=== PATIENT | male | born 1935 | race Caucasian/White ===

== ENCOUNTER 2018-02-18 07:49 | Observation (INO) ==
--- NOTE | 2018-02-18 08:10 | ED ---
HPI General Chief Complaint: Chest Pain Stated Complaint: Chest Pain/[facility] Sent Time Seen by Provider: 02/18/18 07:52 Source: patient Mode of arrival: EMS Limitations: no limitations History of Present Illness HPI narrative: 82-year-old male presents by ambulance from the [place] [facility] for chest pain. He was sent here for further evaluation. He was given no medications they are in route. He states he takes aspirin daily and he believes he took it this morning. He was given no nitroglycerin. He states he has been having pressure for about a week. He does not recall his prior cardiac workup and does not believe he has a electrical line splicer that he sees. He denies other associated symptoms. Quality is pressure. Severity is 6 out of 10. He denies modifying factors. 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 Medical History Medical History Diabetes mellitus (Acute) Brain mass (Acute) CKD (chronic kidney disease) (Acute) Coronary atherosclerosis (Acute) Dementia (Acute) GERD (gastroesophageal reflux disease) (Acute) HTN (hypertension) (Acute) Incontinence (Acute) Legally blind (Acute) Mixed hyperlipidemia (Acute) Spinal stenosis (Acute) Surgical History Surgical History History of back surgery (Acute) History of hernia repair (Acute) 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 HEAD: Atraumatic. Normocephalic. EYES: Pupils equal and round. No scleral icterus. No injection or drainage. ENT: No nasal bleeding or discharge. Mucous membranes pink and moist. NECK: Trachea midline. No JVD. CARDIOVASCULAR: Regular rate and rhythm. RESPIRATORY: No accessory muscle use. Clear to auscultation. Breath sounds equal bilaterally. GASTROINTESTINAL: Abdomen soft, non-tender, nondistended. MUSCULOSKELETAL: No obvious deformities. No clubbing. No cyanosis. NEUROLOGICAL: Awake and alert. Motor grossly within normal limits. Normal speech. PSYCHIATRIC: Appropriate mood and affect; insight and judgment normal. Course Reevaluation(s) Reevaluation #1: arrived at bedside and states that he had a full aspirin this morning. Patient is currently pain-free after 1 nitroglycerin. states that he is following up next Saturday with a neurologist after a brain mass was found in his frontal lobe that they think is related to his dementia symptoms. She states he does not have a electrical line splicer and has not had a workup for at least 6-8 years. She was updated about troponin and agrees to admission. Patient agrees as well Consultations Consultation #1: dr west agrees to admit and to hold on imaging for now given symptoms Initial Documented Vital Signs Pulse Rate 64 02/18/18 07:56 Respiratory Rate 16 02/18/18 07:56 Blood Pressure 150/77 H 02/18/18 07:56 Pulse Oximetry 96 02/18/18 07:56 Last Documented Vital Signs Temperature 98.5 F 02/18/18 08:02 Pulse Rate 69 02/18/18 08:22 Respiratory Rate 16 02/18/18 08:22 Blood Pressure 113/68 02/18/18 08:22 Pulse Oximetry 95 02/18/18 08:22 Medical Decision Making [facility] Narrative Medical decision making narrative: Will check blood work, chest x-ray, EKG and dose with nitroglycerin and reevaluate. Medical Screen Exam Complete: Yes Emergency Medical Condition: Yes Differential Diagnosis Differential Diagnosis: Cardiac, musculoskeletal, gastritis Lab Data Result diagrams: 02/18/18 08:02 02/18/18 08:02 Lab Results 02/18/18 02/18/18 02/18/18 Range/Units 08:02 08:02 08:02 WBC 7.0 (4.0-11.0) th/mm3 RBC 4.19 L (4.50-5.90) mil/mm3 Hgb 12.3 L (13.0-17.0) gm/dL Hct 35.5 L (39.0-51.0) % MCV 84.8 (80.0-100.0) fL MCH 29.4 (27.0-34.0) pg MCHC 34.7 (32.0-36.0) % RDW 14.4 (11.6-17.2) % Plt Count 138 L (150-450) th/mm3 MPV 9.8 (7.0-11.0) fL Prelim Diff (Auto) Slide review pending Neut % (Auto) 63.0 (16.0-70.0) % Lymph % (Auto) 23.6 (9.0-44.0) % [place] % (Auto) 8.5 H (0.0-8.0) % Eos % (Auto) 4.0 (0.0-4.0) % Baso % (Auto) 0.9 (0.0-2.0) % Neut # (Auto) 4.4 (1.8-7.7) th/mm3 Lymph # (Auto) 1.6 (1.0-4.8) th/mm3 [place] # (Auto) 0.6 (0.0-0.9) th/mm3 Eos # (Auto) 0.3 (0.0-0.4) th/mm3 Baso # (Auto) 0.1 (0.0-0.2) th/mm3 WBC Differential . Diff Scan Auto diff confirmed Differential Comment . Platelet Estimate Low L (Normal) Platelet Morphology Enlarged H (Normal) Ovalocytes 1+ H (None) PT 9.9 (9.8-11.6) sec INR 1.0 Ratio APTT 21.2 L (23.4-31.7) sec Sodium 137 (136-145) meq/L Potassium 4.4 (3.5-5.1) meq/L Chloride 101 (98-107) meq/L Carbon Dioxide 26.7 (21.0-32.0) meq/L Anion Gap 9 (5-15) meq/L BUN 23 H (7-18) mg/dL Creatinine 1.37 H (0.60-1.30) mg/dL Estimated GFR 50 L (>89) mL/min Random Glucose 262 H (74-106) mg/dL Calcium 9.1 (8.5-10.1) mg/dL Magnesium 1.7 (1.5-2.5) mg/dL Total Bilirubin 0.4 (0.2-1.0) mg/dL AST 18 (15-37) U/L ALT 21 (12-78) U/L Alkaline Phosphatase 57 (45-117) U/L Total Creatine Kinase 52 (39-308) U/L Troponin I 0.10 H (0.02-0.05) ng/mL Total Protein 6.7 (6.4-8.2) g/dL Albumin 3.4 (3.4-5.0) g/dL Imaging Data Radiologist's impression: Chest X-Ray 02/18/18 07:58 CONCLUSION: No acute cardiopulmonary findings. Discharge Plan Discharge Disposition Patient Disposition: 30 Still Patient Discharge Details Diagnosis: Chest pain Physicians Team ED Provider: Danielle Raymond Primary Care Provider: [facility] /Orders / Referrals /Forms Prescriptions: No Action aspirin 325 mg Tablet 325 mg PO DAILY RF: 0 Discharge Instructions Patient Printed Instructions: Chest Pain (ED) Status ED Status: Admitted Observation Patient
--- NOTE | 2018-02-18 08:18 | XR ---
EXAM DATE: 02/18/2018 8:13 AM EST AGE/SEX: 82 years / Male INDICATIONS: Chest pain. CLINICAL DATA: This is the patient's initial encounter. Patient reports that signs and symptoms have been present for 1 week and indicates a pain score of 5/10. MEDICAL/SURGICAL HISTORY: None. None. COMPARISON: No prior exams available for comparison. FINDINGS: A single AP view of the chest demonstrates the lungs to be symmetrically aerated without evidence of mass, infiltrate or effusion. The cardiomediastinal contours are unremarkable. Osseous structures a re intact. CONCLUSION: No acute cardiopulmonary findings. Electronically signed by: Calvin Szymanski MD 02/18/2018 8:17 AM EST
[2018-02-18 08:26] LABS: Baso # (Auto) 0.1 th/mm3 (0.0-0.2); Baso % (Auto) 0.9 % (0.0-2.0); Eos # (Auto) 0.3 th/mm3 (0.0-0.4); Hematocrit 35.5 % (39.0-51.0); Hemoglobin 12.3 gm/dL (13.0-17.0); Lymph # (Auto) 1.6 th/mm3 (1.0-4.8); Lymph % (Auto) 23.6 % (9.0-44.0); Mean Corpuscular HGB Conc 34.7 % (32.0-36.0); Mean Corpuscular Hemoglobin 29.4 pg (27.0-34.0); Mean Corpuscular Volume 84.8 fL (80.0-100.0); Mean Platelet Volume 9.8 fL (7.0-11.0); Mono # (Auto) 0.6 th/mm3 (0.0-0.9); Mono % (Auto) 8.5 % (0.0-8.0); Neut # (Auto) 4.4 th/mm3 (1.8-7.7); Platelet Count 138 th/mm3 (150-450); Red Blood Count 4.19 mil/mm3 (4.50-5.90); Red Cell Distribution Width 14.4 % (11.6-17.2)
[2018-02-18 08:39] LABS: Activated Partial Thrombo Time 21.2 sec (23.4-31.7); Prothrombin Time 9.9 sec (9.8-11.6)
[2018-02-18 08:41] LABS: Albumin 3.4 g/dL (3.4-5.0); Anion Gap 9 meq/L (5-15); Aspartate Aminotransferase 18 U/L (15-37); Blood Urea Nitrogen 23 mg/dL (7-18); Calcium 9.1 mg/dL (8.5-10.1); Carbon Dioxide 26.7 meq/L (21.0-32.0); Chloride 101 meq/L (98-107); Glomerular Filtration Rate 50 mL/min (>89); Glucose,Random 262 mg/dL (74-106); Magnesium 1.7 mg/dL (1.5-2.5); Potassium 4.4 meq/L (3.5-5.1); Sodium 137 meq/L (136-145)
[2018-02-18 08:42] LABS: Alanine Aminotransferase 21 U/L (12-78)
[2018-02-18 08:46] LABS: Alkaline Phosphatase 57 U/L (45-117); Total Protein 6.7 g/dL (6.4-8.2)
[2018-02-18 08:51] LABS: Creatine Kinase 52 U/L (39-308)
[2018-02-18 09:06] LABS: Ovalocytes 1+
[2018-02-18] MEDS ORDERED: Iohexol 350 MG/ML 100 ML Vial (for Cath Lab) IVCONTRAST ONE (09:25)
[2018-02-18] MEDS ORDERED: Sod Chloride 0.9% Inj 1,000 ML IV.CONT SCH (09:30)
[2018-02-18] MEDS: Heparin - SQ 10,000 UNITS/ML Vial SQ SCH ×2 (10:15→20:47)
--- NOTE | 2018-02-18 12:58 | MB ---
cc: Naresh Leonard MD DATE: 02/18/2018 REASON FOR CONSULTATION: Chest pain. HISTORY OF PRESENT ILLNESS: The patient is an 82-year-old white male with a history of dementia, diabetes, hypertension, brain mass, who was brought to the hospital due to complaints of chest pain. The patient states for the past 2 weeks, he has had daily episodes of left parasternal chest discomfort described as a "ache" without associated shortness of breath, nausea or diaphoresis. In the last 2-3 weeks, he has also noted increasing dyspnea on exertion, barely able to walk 50 yards without considerable shortness of breath. He denies paroxysmal nocturnal dyspnea, pedal edema, lightheadedness, syncope, near syncope, palpitations. His last episode of chest discomfort was this morning. Some of the episodes have lasted up to 2 hours. PAST MEDICAL HISTORY: 1. Diabetes. 2. Hypertension. 3. Hyperlipidemia. 4. Gastroesophageal reflux disease. 5. Dementia. 6. Brain mass, unclear type, currently being seen at the [facility] for further evaluation and treatment. PAST SURGICAL HISTORY: 1. Hernia repair. 2. Back surgery. 3. 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 CARDIAC MEDICATIONS AT HOME: 1. Amlodipine 2.5 mg daily. 2. Aspirin 325 mg daily. 3. Furosemide 20 mg daily. 4. Lisinopril 40 mg daily. 5. Niacin 500 mg daily. 6. Potassium chloride 10 mEq daily. 7. Crestor 40 mg daily. 8. For his diabetes, he takes Glipizide 20 mg b.i.d. Metformin 500 mg b.i.d. ALLERGIES: OXYCODONE. FAMILY HISTORY: Noncontributory. SOCIAL HISTORY: The patient quit smoking in the . He denies alcohol abuse. REVIEW OF SYSTEMS: As in the history of present illness, otherwise negative or noncontributory. He also denies headache, unilateral weakness or numbness, abdominal pain, melena, dyspepsia, bright red blood per rectum, cough, fevers. PHYSICAL EXAMINATION: VITAL SIGNS: His blood pressure 148/69 with a pulse of 57, respirations 16. GENERAL: He is a well-developed, well-nourished white male, in no acute distress. HEENT: Jugular venous pressure is normal. Carotid pulses are 2+ bilaterally and without bruits. CHEST: Reveals clear lungs kirby. CARDIAC: He has a regular rhythm and rate without S3, S4, or murmur. ABDOMEN: He has a soft, nontender abdomen. Bowel sounds are present. There is no definite hepatosplenomegaly. EXTREMITIES: Reveals no clubbing, cyanosis or edema. Peripheral pulses are normal throughout. LABORATORY DATA: EKG shows sinus rhythm with occasional premature atrial complex, nonspecific intraventricular conduction delay, nonspecific ST and T-wave abnormalities. Chest x-ray shows no acute disease. LABORATORY DATA: Includes WBC 7.0, hemoglobin 12.3, platelets 138, potassium 4.4, BUN 23, creatinine 1.37, troponin 0.10, CK 52. IMPRESSION: Symptoms most suggestive of unstable angina in this 82-year-old white male with a history of diabetes, hypertension, hyperlipidemia, dementia, brain mass. Indeed, his symptoms over the past 2 weeks are most consistent with exertional angina in an unstable pattern. In addition, he has had worsening dyspnea over the last 2-3 weeks. There is no definite evidence of congestive heart failure. The patient does have a number of risk factors for coronary disease including diabetes, hypertension, hyperlipidemia. Ideally, the patient needs heart catheterization. However, the nature of his brain mass, whether it is malignant or benign, whether it needs surgical intervention or not, is not clear at this time. RECOMMENDATIONS: 1. Await his 2-D echo. 2. Continue daily aspirin. Overall, recommend medical therapy until further information can be obtained regarding his brain mass. Will increase his amlodipine dosing, add an oral nitrate and low dose carvedilol. MD ZAKIYA Marquez/clarita/catrachita , 12:20 PM , 12:31 PM SHRUTI
--- NOTE | 2018-02-18 14:52 | P.HPIM ---
History of Present Illness [facility]: [facility] Physician: [facility] Chief Complaint: Chest pain. History of Present Illness: 82-year-old male with a medical history significant for dementia, hypertension, diabetes, chronic kidney disease sent by the OR after his convinced him to seek medical care. The patient has dementia therefore the history was obtained from his at bedside. She reports the patient has been having intermittent chest pain over the past 10 days. Pain is described as pressure with associated diaphoresis and shortness of breath. He has limited functional capacity and cannot walk across the room without getting short of breath and having chest pain. His convinced him to go to the OR today and they sent him here for evaluation. The patient was also found to have a brain mass per his 2 months ago. They have a follow-up appointment with neurology at the OR in [place] on Saturday. His reports they do not intend to pursue any surgical intervention. Her daughter is a radiologist who will be going to the appointment with them. They do not want further workup here regarding this brain mass. Review of Systems All other systems reviewed negative except as stated in HPI PMFSH - History History Provided By: Patient - Medical History Medical History: Medical History (Last Reviewed 02/18/18 @ 14:36 by Ale Arevalo MD) Diabetes mellitus Brain mass CKD (chronic kidney disease) Coronary atherosclerosis Dementia GERD (gastroesophageal reflux disease) HTN (hypertension) Incontinence Legally blind Mixed hyperlipidemia Spinal stenosis - Surgical History Surgical History: Surgical History (Last Reviewed 02/18/18 @ 14:36 by Ale Arevalo MD) History of back surgery History of hernia repair History of surgical removal of squamous cell carcinoma of skin of right mu-ism - Family History Family History: Family History (Last Updated 02/18/18 @ 14:36 by Ale Arevalo MD) Other Alzheimer's dementia - Social History I have reviewed the patient's Social History: Yes - Tobacco History Second Hand Smoke Exposure: No Tobacco Use In Past 30 Days: No Smoking Status: Former smoker - Alcohol History How Often Do You Have a Drink Containing Alcohol: Never - Substance Use History Substance History: No History of Abuse - Travel History Recent Travel in the [place] Within the Last 8 Weeks: No Recent Travel Out of the Country Within the Last 8 Weeks: No - Immunization History Tetanus Immunization: >5 Years Medications and Allergies Active Medications: Active Medications Amlodipine Besylate (Norvasc) 5 mg PO DAILY [facility] Aspirin (Aspirin) 325 mg PO DAILY [facility] Carvedilol (Coreg) 3.125 mg PO BID [facility] Heparin Sodium (Porcine) (Heparin Inj) 5,000 units SQ Q12H [facility] Last Admin: 02/18/18 10:15 Dose: 5,000 units Sodium Chloride (Ns Inj) 1,000 mls @ 75 mls/hr IV.CONT .[id number] [facility] Stop: 02/18/18 22:49 Last Admin: 02/18/18 10:14 Dose: 75 mls/hr Isosorbide Mononitrate (Imdur) 60 mg PO DAILY@0700 [facility] Nitroglycerin (Nitrostat Sl) 0.4 mg SL Q5M PRN PRN Reason: ANGINA Sodium Chloride (Ns Flush) 2 ml IV.FLUSH UNSCH PRN PRN Reason: FLUSH AFTER USING IV ACCESS Sodium Chloride (Ns Flush) 2 ml IV.FLUSH BID [facility] Sodium Chloride (Ns Flush) 2 ml IV.FLUSH PRN PRN PRN Reason: FLUSH AFTER USING IV ACCESS Allergies Allergy/AdvReac Type Severity Reaction Status Date / Time oxycodone Allergy Mild Nausea/Vomi Verified 02/18/18 08:18 ting Home Medications Medication Instructions Recorded Confirmed Type amitriptyline 10 mg PO HS 02/18/18 02/18/18 History amlodipine 2.5 mg PO DAILY 02/18/18 02/18/18 History aspirin 325 mg PO DAILY 02/18/18 02/18/18 History carboxymethylcell-hypromellose 1 drp EACH EYE QID 02/18/18 02/18/18 History cholecalciferol (vitamin D3) 1,000 unit PO DAILY 02/18/18 02/18/18 History [Vitamin D3] cyanocobalamin (vitamin B-12) 1,000 mcg PO DAILY 02/18/18 02/18/18 History [Vitamin B-12] furosemide [Lasix] 20 mg PO DAILY 02/18/18 02/18/18 History gabapentin 400 mg PO TID PRN 02/18/18 02/18/18 History glipizide 20 mg PO BIDAC 02/18/18 02/18/18 History hydrocodone-acetaminophen [[place]] 1 tab PO Q6H PRN 02/18/18 02/18/18 History lisinopril 40 mg PO DAILY 02/18/18 02/18/18 History metformin 500 mg PO BID 02/18/18 02/18/18 History methocarbamol 750 mg PO QID PRN 02/18/18 02/18/18 History niacin 500 mg PO DAILY 02/18/18 02/18/18 History omeprazole 20 mg PO BIDAC 02/18/18 02/18/18 History potassium chloride 10 meq PO DAILY 02/18/18 02/18/18 History rosuvastatin 20 mg PO HS 02/18/18 02/18/18 History Exam Vital signs: Vital Signs 02/18/18 07:56 02/18/18 08:02 02/18/18 08:22 Temperature 98.5 F Pulse Rate 64 61 69 Respiratory Rate 16 16 Blood Pressure 150/77 H 113/68 Pulse Oximetry 96 100 95 02/18/18 10:19 02/18/18 11:05 02/18/18 12:00 Temperature Pulse Rate 54 L 54 L 57 L Respiratory Rate 16 16 16 Blood Pressure 119/65 129/65 148/69 H Pulse Oximetry 99 100 100 Intake & Output 02/17/18 02/18/18 02/18/18 18:59 06:59 18:59 Weight 74.843 kg Narrative: CONSTITUTIONAL/GENERAL: Elderly male in no apparent distress. Vital signs reviewed SKIN: No jaundice, rashes, or concerning lesions. Not diaphoretic. HEAD: Atraumatic. Normocephalic. EYES: Pupils equal and round and reactive. Extra ocular motions are intact. No scleral icterus. No injection or drainage. NECK: Trachea midline. Neck is supple, non-tender. No palpable thyroid enlargement or nodularity. CARDIOVASCULAR: Normal rate and regular rhythm without significant murmurs, gallops, or rubs. No JVD. Peripheral pulses 2+ and symmetric. RESPIRATORY/CHEST: Symmetric, unlabored respirations. Breath sounds equal and clear to auscultation bilaterally. Diminished breath sounds at the bases bilaterally. GASTROINTESTINAL: Abdomen soft, non-tender, non-distended. Bowel sounds present. MUSCULOSKELETAL: Extremities without clubbing, cyanosis, or edema. NEUROLOGICAL: Awake and alert. Motor and sensory grossly within normal limits. Follows commands. Oriented to self and place only. Not aware of situation. He believes it is 1987. PSYCHIATRIC: No obvious mood problems. Calm. Results - Labs CBC & Chem 7: 02/18/18 08:02 02/18/18 08:02 Labs: Short CBC 02/18/18 Range/Units 08:02 WBC 7.0 (4.0-11.0) th/mm3 Hgb 12.3 L (13.0-17.0) gm/dL Hct 35.5 L (39.0-51.0) % Plt Count 138 L (150-450) th/mm3 BMP 02/18/18 08:02 Sodium 137 Potassium 4.4 Chloride 101 Carbon Dioxide 26.7 BUN 23 H Creatinine 1.37 H Calcium 9.1 Cardiac Enzymes 02/18/18 Range/Units 08:02 Total Creatine Kinase 52 (39-308) U/L Troponin I 0.10 H (0.02-0.05) ng/mL Liver Function 02/18/18 Range/Units 08:02 Total Bilirubin 0.4 (0.2-1.0) mg/dL AST 18 (15-37) U/L ALT 21 (12-78) U/L Alkaline Phosphatase 57 (45-117) U/L Albumin 3.4 (3.4-5.0) g/dL - Imaging Impressions Chest X-Ray 02/18/18 07:58 CONCLUSION: No acute cardiopulmonary findings. Caprini VTE Risk Assessment Caprini VTE Risk Assessment: Moderate/High Risk (score >= 2) Caprini Risk Assessment Model: Point Value = 1 Point Value = 2 Point Value = 3 Point Value = 5 Age 41-60 Minor surgery BMI > 25 kg/m2 Swollen legs Varicose veins or History of unexplained or recurrent spontaneous Oral contraceptives or hormone replacement Sepsis (< 1 month) Serious lung disease, including pneumonia (< 1 month) Abnormal pulmonary function Acute myocardial infarction Congestive heart failure (< 1 month) History of inflammatory bowel disease Medical patient at bed rest Age 61-74 Arthroscopic surgery Major open surgery (> 45 min) Laparoscopic surgery (> 45 min) Malignancy Confined to bed (> 72 hours) Immobilizing plaster cast Central venous access Age >= 75 History of VTE Family history of VTE Factor V Leiden Prothrombin [id number] Lupus anticoagulant Anticardiolipin antibodies Elevated serum homocysteine Heparin-induced thrombocytopenia Other congenital or acquired thrombophilia Stroke (< 1 month) Elective arthroplasty Hip, pelvis, or leg fracture Acute spinal cord injury (< 1 month) Prophylaxis Regimen: Total Risk Factor Score Risk Level Prophylaxis Regimen 0-1 Low Early ambulation 2 Moderate Order ONE of the following: *Sequential Compression Device (SCD) *Heparin 5000 units SQ BID 3-4 Higher Order ONE of the following medications: *Heparin 5000 units SQ TID *Enoxaparin/Lovenox 40 mg SQ daily (WT < 150 kg, CrCl > 30 mL/min) *Enoxaparin/Lovenox 30 mg SQ daily (WT < 150 kg, CrCl > 10-29 mL/min) *Enoxaparin/Lovenox 30 mg SQ BID (WT < 150 kg, CrCl > 30 mL/min) AND/OR *Sequential Compression Device (SCD) 5 or more Highest Order ONE of the following medications: *Heparin 5000 units SQ TID (Preferred with Epidurals) *Enoxaparin/Lovenox 40 mg SQ daily (WT < 150 kg, CrCl > 30 mL/min) *Enoxaparin/Lovenox 30 mg SQ daily (WT < 150 kg, CrCl > 10-29 mL/min) *Enoxaparin/Lovenox 30 mg SQ BID (WT < 150 kg, CrCl > 30 mL/min) AND *Sequential Compression Device (SCD) Assessment and Plan - Plan 82-year-old male presented with intermittent chest pain, need to rule out ACS. Chest pain, elevated troponin. Rule out ACS: Multiple risk factors including hypertension, CKD and diabetes -Patient received an aspirin this morning. Currently chest pain-free. - Continue nitro as needed. Trend cardiac enzymes and EKG. -Appreciate cardiology input. Agree that medical management is more appropriate given an CKD, brain mass, and overall poor level of functioning. -Per cardiology, amlodipine dose increased. Coreg and Imdur were added -2D echocardiogram ordered. Brain mass: I discussed further workup here with the patient's . However they want to follow-up on Saturday at the OR in [place] and do not want to pursue further workup in the hospital at this point. They do not intend to pursue any surgical intervention. -No focal neurological deficits at this point. Continue to monitor. Type 2 diabetes: - Continue with sliding scale insulin with Accu-Cheks. Hypertension: Continue cardiac medications as above. On Lasix at home. We will continue for now. Follow BP. Dementia: - Continue home medications. Discussed Condition With: Dr. Raymond H&P: Quality - VTE Deep Vein Thrombosis/Pulmonary Embolism Present on Admission: No
[2018-02-18 15:28] LABS: Troponin I 0.22 ng/mL (0.02-0.05)
--- NOTE | 2018-02-18 18:11 | ECG ---
Date Performed: 02/18/2018 Time Performed: 07:58:15 PTAGE: 82 years EKG: Sinus rhythm WITH FIRST DEGREE AV BLOCK LEFT VENTRICULAR HYPERTROPHY AND ST-T CHANGE ANTERIOR MYOCARDIAL INFARCTI ON INFERIOR MYOCARDIAL INFARCTION ACUTE VT NO PREVIOUS TRACING DOCTOR: Alesha Abad Interpretating Date/Time 02/18/2018 18:08:00
[2018-02-18] MEDS: Pantoprazole Sodium 20 MG DR Tablet PO SCH (18:25)
[2018-02-18] MEDS ORDERED: Dextrose 50% in Water 50 ML Vial IV.PUSH PRN (18:25)
[2018-02-18] MEDS: Carboxymethylcellulose 0.5% Opth Drops 15 ML Bottle EACH EYE SCH ×2 (19:06→20:54)
--- NOTE | 2018-02-18 19:06 | ECHRPT ---
Indication: chest pain CONCLUSIONS Normal left ventricular size. Wall thickness is normal. The left ventricular systolic function is severely reduced with an estimated ejection fraction in the range of 25-30%. Global hypokinesis. [id number] mitral valve regurgitation. Diffuse mild calcification of the aortic valve. The estimated pulmonary arterial pressure is 30 mmHg. There is mild tricuspid valve regurgitation. BP: / HR: Rhythm: MEASUREMENTS (Male / Female) Normal Values Technical Quality: 2D ECHO LV Diastolic Diameter PLAX 5.2 cm 4.2 - 5.9 / 3.9 - 5.3 cm LV Systolic Diameter PLAX 4.5 cm IVS Diastolic Thickness 1.5 cm 0.6 - 1.0 / 0.6 - 0.9 cm LVPW Diastolic Thickness 1.0 cm 0.6 - 1.0 / 0.6 - 0.9 cm LV Relative Wall Thickness 0.5 RV Internal Dim ED PLAX 2.5 cm LVOT Diameter 2.0 cm Aortic Root Diameter 2.5 cm LA Systolic Diameter LX 4.3 cm 3.0 - 4.0 / 2.7 - 3.8 cm LV Ejection Fraction MOD 4C 43.8 % LV Ejection Fraction 4C AL 44.9 % LV Ejection Fraction MOD 2C 54.8 % LV Ejection Fraction 2C AL 57.2 % M-MODE Aortic Root Diameter MM 3.7 cm LA Systolic Diameter MM 5.1 cm LA Ao Ratio MM 1.4 AV Cusp Separation MM 1.0 cm DOPPLER AV Peak Velocity 176.0 cm/s AV Peak Gradient 12.4 mmHg LVOT Peak Velocity 88.4 cm/s LVOT Peak Gradient 3.1 mmHg AV Area Cont Eq pk 1.6 cm Mitral E Point Velocity 73.1 cm/s Mitral A Point Velocity 111.0 cm/s Mitral E to A Ratio 0.7 LV E' Lateral Velocity 10.8 cm/s Mitral E to LV E' Lateral Ratio 6.8 LV E' Septal Velocity 4.9 cm/s Mitral E to LV E' Septal Ratio 15.0 TR Peak Velocity 222.0 cm/s TR Peak Gradient 19.7 mmHg Right Atrial Pressure 10.0 mmHg Pulmonary Artery Systolic Pressu 29.7 mmHg Right Ventricular Systolic Press 29.7 mmHg PV Peak Velocity 113.0 cm/s PV Peak Gradient 5.1 mmHg FINDINGS LEFT VENTRICLE Normal left ventricular size. Wall thickness is normal. The left ventricular systolic function is severely reduced with an estimated ejection fraction in the range of 25-30%. Global hypokinesis. RIGHT VENTRICLE Normal right ventricular size and systolic function. LEFT ATRIUM The left atrial size is upper limits of normal. RIGHT ATRIUM The right atrial size is normal. ATRIAL SEPTUM Normal atrial septal thickness without atrial level shunting by limited color doppler interrogation. AORTA The aortic root and proximal ascending aorta are normal in size on limited imaging. MITRAL VALVE [id number] mitral valve regurgitation. AORTIC VALVE Diffuse mild calcification of the aortic valve. TRICUSPID VALVE The estimated pulmonary arterial pressure is 30 mmHg. There is mild tricuspid valve regurgitation. PULMONARY VALVE No pulmonary valve regurgitation or stenosis. VESSELS The inferior vena cava is normal in size. PERICARDIUM A moderate left sided pleural effusion is noted. Naresh Leonard MD (Electronically Signed) Final Date:18 February 2018 19:05
[2018-02-18] MEDS ORDERED: Insulin NovoLOG Aspart Correctional Sugar Inj SQ ONE (19:30)
[2018-02-18] MEDS: Gabapentin 400 MG Capsule PO PRN (20:46)
[2018-02-18] MEDS: Amitriptyline 10 MG Tablet PO SCH (20:47)
[2018-02-18] MEDS: Insulin NovoLOG Aspart Correctional Sugar Inj SQ SCH (20:48)
[2018-02-18 21:37] LABS: Troponin I 0.19 ng/mL (0.02-0.05)
[2018-02-19] MEDS: Isosorbide Mononitrate 60 MG ER 24HR Tablet (Imdur) PO SCH ×2 (07:00→08:27)
[2018-02-19] MEDS: Furosemide 20 MG Tablet PO SCH (08:05)
[2018-02-19] MEDS: Aspirin 325 MG Tablet PO SCH (08:06)
[2018-02-19] MEDS: Gabapentin 400 MG Capsule PO PRN (08:07)
[2018-02-19] MEDS: Pantoprazole Sodium 20 MG DR Tablet PO SCH ×2 (08:07→17:19)
[2018-02-19] MEDS: amLODIPine 5 MG Tablet PO SCH (08:07)
[2018-02-19] MEDS: Methocarbamol 500 MG Tablet PO PRN (08:10)
[2018-02-19] MEDS: Lisinopril 20 MG Tablet PO SCH (08:17)
--- NOTE | 2018-02-19 08:21 | P.PNCA ---
Subjective Interval history: Denies CP, dyspnea, dizziness, palpitations, nausea. Slept poorly. Feels overall "uncomfortable". Medications and Allergies Active Medications: Active Medications Hydrocodone Bitart/Acetaminophen ([place] 10/325) 1 tab PO Q6H PRN PRN Reason: Pain 1-10 Last Admin: 02/19/18 08:07 Dose: 1 tab Amitriptyline HCl (Elavil) 10 mg PO HS [facility] Last Admin: 02/18/18 20:47 Dose: 10 mg Amlodipine Besylate (Norvasc) 5 mg PO DAILY [facility] Last Admin: 02/19/18 08:07 Dose: 5 mg Artificial Tears (Refresh Tears 0.5% Opth Drops) 1 drop EACH EYE QID [facility] Last Admin: 02/18/18 20:54 Dose: Not Given Aspirin (Aspirin) 325 mg PO DAILY [facility] Last Admin: 02/19/18 08:06 Dose: 325 mg Atorvastatin Calcium (Lipitor) 40 mg PO HS [facility] Last Admin: 02/18/18 20:46 Dose: 40 mg Carvedilol (Coreg) 3.125 mg PO BID [facility] Last Admin: 02/19/18 08:06 Dose: 3.125 mg Cyanocobalamin (Vitamin B12) 1,000 mcg PO DAILY [facility] Last Admin: 02/19/18 08:07 Dose: 1,000 mcg Dextrose (D50w Vial) 50 ml IV.PUSH UNSCH PRN PRN Reason: PER HYPOGLYCEMIA PROTOCOL Furosemide (Lasix) 20 mg PO DAILY [facility] Last Admin: 02/19/18 08:05 Dose: 20 mg Gabapentin (Neurontin) 400 mg PO TID PRN PRN Reason: Pain/Restless legs Last Admin: 02/19/18 08:07 Dose: 400 mg Glucagon (Glucagon Inj) 1 mg OTHER PRN PRN PRN Reason: for Hypoglycemia Protocol Heparin Sodium (Porcine) (Heparin Inj) 5,000 units SQ Q12H [facility] Last Admin: 02/18/18 20:47 Dose: 5,000 units Insulin Aspart (Novolog Insulin Correctional Sugar Inj) 0 unit SQ [facility]; Protocol Last Admin: 02/18/18 20:48 Dose: 5 unit Isosorbide Mononitrate (Imdur) 60 mg PO DAILY@0700 [facility] Lisinopril (Prinivil) 40 mg PO DAILY [facility] Methocarbamol (Robaxin) 750 mg PO QID PRN PRN Reason: Muscle Spasm Last Admin: 02/19/18 08:10 Dose: 750 mg Niacin (Slo-Niacin) 500 mg PO DAILY [facility] Last Admin: 02/19/18 08:07 Dose: 500 mg Nitroglycerin (Nitrostat Sl) 0.4 mg SL Q5M PRN PRN Reason: ANGINA Last Admin: 02/18/18 20:45 Dose: 0.4 mg Pantoprazole Sodium (Protonix) 20 mg PO BIDAC [facility] Last Admin: 02/19/18 08:07 Dose: 20 mg Sodium Chloride (Ns Flush) 2 ml IV.FLUSH UNSCH PRN PRN Reason: FLUSH AFTER USING IV ACCESS Sodium Chloride (Ns Flush) 2 ml IV.FLUSH BID [facility] Last Admin: 02/18/18 20:53 Dose: 2 ml Sodium Chloride (Ns Flush) 2 ml IV.FLUSH PRN PRN PRN Reason: FLUSH AFTER USING IV ACCESS Vitamin D (Vitamin D3) 1,000 unit PO DAILY [facility] Last Admin: 02/19/18 08:07 Dose: 1,000 unit Allergies Allergy/AdvReac Type Severity Reaction Status Date / Time oxycodone Allergy Mild Nausea/Vomi Verified 02/18/18 08:18 ting Home Medications Medication Instructions Recorded Confirmed Type amitriptyline 10 mg PO HS 02/18/18 02/18/18 History amlodipine 2.5 mg PO DAILY 02/18/18 02/18/18 History aspirin 325 mg PO DAILY 02/18/18 02/18/18 History carboxymethylcell-hypromellose 1 drp EACH EYE QID 02/18/18 02/18/18 History cholecalciferol (vitamin D3) 1,000 unit PO DAILY 02/18/18 02/18/18 History [Vitamin D3] cyanocobalamin (vitamin B-12) 1,000 mcg PO DAILY 02/18/18 02/18/18 History [Vitamin B-12] furosemide [Lasix] 20 mg PO DAILY 02/18/18 02/18/18 History gabapentin 400 mg PO TID PRN 02/18/18 02/18/18 History glipizide 20 mg PO BIDAC 02/18/18 02/18/18 History hydrocodone-acetaminophen [[place]rop] 1 tab PO Q6H PRN 02/18/18 02/18/18 History lisinopril 40 mg PO DAILY 02/18/18 02/18/18 History metformin 500 mg PO BID 02/18/18 02/18/18 History methocarbamol 750 mg PO QID PRN 02/18/18 02/18/18 History niacin 500 mg PO DAILY 02/18/18 02/18/18 History omeprazole 20 mg PO BIDAC 02/18/18 02/18/18 History potassium chloride 10 meq PO DAILY 02/18/18 02/18/18 History rosuvastatin 20 mg PO HS 02/18/18 02/18/18 History Physical Exam Vital signs: Vital Signs 02/18/18 08:22 02/18/18 10:19 02/18/18 11:05 Temperature Pulse Rate 69 54 L 54 L Respiratory Rate 16 16 16 Blood Pressure 113/68 119/65 129/65 Pulse Oximetry 95 99 100 02/18/18 12:00 02/18/18 16:00 02/18/18 19:25 Temperature Pulse Rate 57 L 56 L Respiratory Rate 16 18 16 Blood Pressure 148/69 H 131/71 Pulse Oximetry 100 97 02/18/18 20:00 02/18/18 20:28 02/18/18 20:50 Temperature 98.2 F Pulse Rate 86 77 Respiratory Rate 14 16 Blood Pressure 151/83 H Pulse Oximetry 99 02/18/18 23:35 02/19/18 03:42 Temperature 98.1 F 97.5 F L Pulse Rate 60 60 Respiratory Rate 14 20 Blood Pressure 121/68 132/63 Pulse Oximetry 100 98 Intake & Output 02/18/18 02/19/18 02/19/18 18:59 06:59 18:59 Intake Total 1240 / 1240 Balance 1240 / 1240 Weight 74.843 kg Intake: IV 1000 / 1000 NS Inj 1,000 ML @ 75 mls/hr IV. 1000 / 1000 CONT .[id number] [facility] Rx#:[id number] Oral 240 / 240 Other: # Voids 3 # Incontinent Voids 1 - Constitutional no acute distress - Routine Neck Exam Absent: JVD - Routine Respiratory Exam Present: CTA bilaterally - Routine Cardiovascular Exam Present: RRR, S1, S2. Absent: murmur, gallop - Routine Abdominal Exam Present: soft, normoactive bowel sounds. Absent: tenderness, organomegaly - Routine Extremities Exam Absent: cyanosis, clubbing, edema Results 02/18/18 08:02 02/18/18 08:02 Cardiac Enzymes 02/18/18 02/18/18 02/18/18 Range/Units 08:02 08:02 14:16 AST 18 (15-37) U/L Troponin I 0.10 H 0.22 H (0.02-0.05) ng/mL B-Natriuretic Peptide 437 H (0-100) pg/mL 02/18/18 Range/Units 20:33 AST (15-37) U/L Troponin I 0.19 H (0.02-0.05) ng/mL B-Natriuretic Peptide (0-100) pg/mL Coagulation 02/18/18 02/18/18 Range/Units 08:02 08:02 PT 9.9 (9.8-11.6) sec APTT 21.2 L (23.4-31.7) sec B-Natriuretic Peptide 437 H (0-100) pg/mL CBC 02/18/18 Range/Units 08:02 WBC 7.0 (4.0-11.0) th/mm3 RBC 4.19 L (4.50-5.90) mil/mm3 Hgb 12.3 L (13.0-17.0) gm/dL Hct 35.5 L (39.0-51.0) % Plt Count 138 L (150-450) th/mm3 Neut # (Auto) 4.4 (1.8-7.7) th/mm3 Lymph # (Auto) 1.6 (1.0-4.8) th/mm3 [place] # (Auto) 0.6 (0.0-0.9) th/mm3 Eos # (Auto) 0.3 (0.0-0.4) th/mm3 Baso # (Auto) 0.1 (0.0-0.2) th/mm3 Comprehensive Metabolic Panel 02/18/18 Range/Units 08:02 Sodium 137 (136-145) meq/L Potassium 4.4 (3.5-5.1) meq/L Chloride 101 (98-107) meq/L Carbon Dioxide 26.7 (21.0-32.0) meq/L BUN 23 H (7-18) mg/dL Creatinine 1.37 H (0.60-1.30) mg/dL Calcium 9.1 (8.5-10.1) mg/dL AST 18 (15-37) U/L ALT 21 (12-78) U/L Alkaline Phosphatase 57 (45-117) U/L Total Protein 6.7 (6.4-8.2) g/dL Albumin 3.4 (3.4-5.0) g/dL Intake and Output 02/18/18 02/19/18 02/19/18 22:59 06:59 14:59 Intake Total 1000 / 1000 240 / 240 Balance 1000 / 1000 240 / 240 Intake: IV 1000 / 1000 NS Inj 1,000 ML @ 75 mls/hr IV. 1000 / 1000 CONT .[id number] [facility] Rx#:[id number] Oral 240 / 240 Other: # Voids 3 # Incontinent Voids 1 - Imaging and Cardiology Imaging: Impressions Chest X-Ray 02/18/18 07:58 CONCLUSION: No acute cardiopulmonary findings. Assessment and Plan - Assessment (1) Unstable angina Code(s): I20.0 - Unstable angina Status: Acute Plan: Stable overnight. No further CP. Recommend medical therapy until more information can be obtained regarding his brain mass (malignant?, needs surgery? , prone to hemorrhage?). Patient's family to try to get his recent brain MRI report. (2) Hypertension Code(s): I10 - Essential (primary) hypertension Status: Chronic Plan: Stable. Mostly hypertensive. (3) Hyperlipidemia Code(s): E78.5 - Hyperlipidemia, unspecified Status: Chronic Plan: Continue statin. Check fasting lipid profile. - Plan Code Status: full code Discussed Condition With: patient, , family at great length (2) Hypertension Qualifiers: Hypertension type: essential hypertension Qualified Code(s): I10 - Essential (primary) hypertension (3) Hyperlipidemia Qualifiers: Hyperlipidemia type: unspecified Qualified Code(s): E78.5 - Hyperlipidemia, unspecified
[2018-02-19] MEDS: Insulin NovoLOG Aspart Correctional Sugar Inj SQ SCH ×4 (09:06→21:11)
[2018-02-19] MEDS: Carboxymethylcellulose 0.5% Opth Drops 15 ML Bottle EACH EYE SCH ×4 (09:07→21:18)
[2018-02-19] MEDS: Heparin - SQ 10,000 UNITS/ML Vial SQ SCH ×2 (09:07→21:14)
--- NOTE | 2018-02-19 09:08 | P.PNIM ---
Subjective Interval history: cc: follow up chest pain Patient states he has not been able to sleep overnight. , who is also POA, is present at bedside. Patient denies chest pain, shortness of breath or palpitations. Denies lower extremity edema. Patient is legally blind according to . He was recently diagnosed with a brain mass and is scheduled to follow up at the MD on Saturday. Physical Exam Vital signs: Last Vital Signs Temp 97.6 F 02/19/18 08:00 Pulse 57 L 02/19/18 08:00 Resp 16 02/19/18 08:00 BP 142/69 H 02/19/18 08:00 Pulse Ox 96 02/19/18 08:00 Intake & Output 02/17/18 02/18/18 02/19/18 02/20/18 06:59 06:59 06:59 06:59 Intake Total 1240 / 1240 Balance 1240 / 1240 Weight 74.843 kg Narrative: GENERAL: awake, alert, no distress, looks younger than stated age SKIN: Warm and dry HEAD: Normocephalic, atraumatic EYES: No scleral icterus. No injection or drainage. NECK: Supple, trachea midline. No JVD or lymphadenopathy. CARDIOVASCULAR: Regular rate and rhythm without murmurs, gallops, or rubs. RESPIRATORY: Breath sounds equal bilaterally. No accessory muscle use. GASTROINTESTINAL: Abdomen soft, non-tender, nondistended. MUSCULOSKELETAL: No cyanosis, or edema. Results Labs CBC & Chem 7: 02/18/18 08:02 02/18/18 08:02 Assessment and Plan (1) Unstable angina: Code(s): I20.0 - Unstable angina Status: Acute -- chest pain free at present time -- 2D echo completed and shows severely reduced left ventricular systolic function with as estimated of 25-30%, global hypokinesis -- cardiology consulted and following, continue medical mgmt -- family to provide MRI of brain for review -- continue daily ASA (2) Hypertension: Code(s): I10 - Essential (primary) hypertension Status: Chronic -- chronic and stable -- continue home medications -- cont to monitor vital signs per unit protocol (3) Brain mass: Code(s): G93.9 - Disorder of brain, unspecified Status: Acute -- pt diagnosed 2 months ago, [facility] -- family to provide MRI of brain for review -- pt and family do not wish to pursue additional work up during his hopitalization here (4) Hyperlipidemia: Code(s): E78.5 - Hyperlipidemia, unspecified Status: Chronic -- chronic and stable -- resume statin (5) Dementia: Code(s): F03.90 - Unspecified dementia without behavioral disturbance Status: Acute -- stable, no behavioral disturbance -- continue home meds Plan family to obtain recent brain MRI records for review Code Status: FULL Discharge Planning: D/C home once cleared from a cardiac standpoint Progress Note: Quality VTE Deep Vein Thrombosis/Pulmonary Embolism Present on Admission: No _ (1) Hypertension Qualifiers: Hypertension type: essential hypertension Qualified Code(s): I10 - Essential (primary) hypertension (2) Hyperlipidemia Qualifiers: Hyperlipidemia type: unspecified Qualified Code(s): E78.5 - Hyperlipidemia, unspecified (3) Dementia Qualifiers: Dementia type: unspecified type Dementia behavioral disturbance: without behavioral disturbance Qualified Code(s): F03.90 - Unspecified dementia without behavioral disturbance
--- NOTE | 2018-02-19 11:45 | ECG ---
Date Performed: 02/18/2018 Time Performed: 20:26:00 PTAGE: 82 years EKG: Sinus rhythm WITH FIRST DEGREE AV BLOCK LEFT VENTRICULAR HYPERTROPHY AND ST-T CHANGE INFERIOR MYOCARDIAL INFARCTI ON ANTEROLATERAL MYOCARDIAL INFARCTION PREVIOUS TRACING : 02/18/2018 07.58 DOCTOR: Scott Boyd Interpretating Date/Time 02/19/2018 11:43:08
[2018-02-19] MEDS: Gabapentin 400 MG Capsule PO SCH ×2 (13:30→17:19)
[2018-02-19] MEDS: Amitriptyline 10 MG Tablet PO SCH (21:16)
[2018-02-20] MEDS: Isosorbide Mononitrate 60 MG ER 24HR Tablet (Imdur) PO SCH (06:21)
[2018-02-20 07:02] LABS: Baso # (Auto) 0.1 th/mm3 (0.0-0.2); Baso % (Auto) 0.7 % (0.0-2.0); Eos # (Auto) 0.2 th/mm3 (0.0-0.4); Eos % (Auto) 2.8 % (0.0-4.0); Hematocrit 34.4 % (39.0-51.0); Hemoglobin 12.1 gm/dL (13.0-17.0); Lymph # (Auto) 1.4 th/mm3 (1.0-4.8); Lymph % (Auto) 18.9 % (9.0-44.0); Mean Corpuscular HGB Conc 35.1 % (32.0-36.0); Mean Corpuscular Hemoglobin 29.5 pg (27.0-34.0); Mean Platelet Volume 9.1 fL (7.0-11.0); Mono # (Auto) 0.7 th/mm3 (0.0-0.9); Mono % (Auto) 9.3 % (0.0-8.0); Neut # (Auto) 5.2 th/mm3 (1.8-7.7); Neut % (Auto) 68.3 % (16.0-70.0); Platelet Count 138 th/mm3 (150-450); Red Cell Distribution Width 14.1 % (11.6-17.2); White Blood Count 7.6 th/mm3 (4.0-11.0)
[2018-02-20 07:29] LABS: Calcium 9.4 mg/dL (8.5-10.1); Carbon Dioxide 29.5 meq/L (21.0-32.0); Potassium 4.5 meq/L (3.5-5.1)
[2018-02-20 07:32] LABS: Chol/HDL Ratio 2.98 Ratio; HDL Cholesterol 39.2 mg/dL (40.0-60.0)
[2018-02-20] MEDS: Insulin NovoLOG Aspart Correctional Sugar Inj SQ SCH ×4 (08:42→21:24)
[2018-02-20] MEDS ORDERED: Sod Chloride 0.9% Inj 1,000 ML IV.CONT SCH ×3 (08:45→14:30)
--- NOTE | 2018-02-20 08:45 | P.PNIM ---
Subjective Interval history: Follow up for CP: She is seen and examined, awake, oriented x2. Denies any chest pain, no shortness of breath. No acute changes overnight. and son at bedside. Asking about cardiac catheterization. Updated patient and family on results of head CT and review per our radiologist-there is no brain mass. Questions answered in detail. They wish to proceed with cardiac catheterization if recommended. We will keep n.p.o. for now Physical Exam Vital signs: Vital Signs 02/19/18 09:10 02/19/18 11:45 02/19/18 12:00 Temperature 98.1 F Pulse Rate 62 Respiratory Rate 15 16 Blood Pressure 112/65 Pulse Oximetry 97 98 02/19/18 15:13 02/19/18 17:27 02/19/18 20:00 Temperature 98.4 F 98.0 F Pulse Rate 60 60 Respiratory Rate 12 15 17 Blood Pressure 109/58 L 102/59 L Pulse Oximetry 95 93 L 02/19/18 23:59 02/20/18 03:35 02/20/18 07:11 Temperature 98.4 F 98.2 F 98.4 F Pulse Rate 61 53 L 61 Respiratory Rate 14 14 16 Blood Pressure 94/51 L 107/55 L 106/53 L Pulse Oximetry 94 L 95 96 Intake & Output 02/19/18 02/20/18 02/20/18 18:59 06:59 18:59 Output Total 150 / 150 Balance -150 / -150 Output: Urine 150 / 150 Narrative: GENERAL: awake, alert, no distress, looks younger than stated age SKIN: Warm and dry HEAD: Normocephalic, atraumatic EYES: No scleral icterus. No injection or drainage. NECK: Supple, trachea midline. No JVD or lymphadenopathy. CARDIOVASCULAR: Regular rate and rhythm without murmurs, gallops, or rubs. RESPIRATORY: Breath sounds equal bilaterally. No accessory muscle use. GASTROINTESTINAL: Abdomen soft, non-tender, nondistended. MUSCULOSKELETAL: No cyanosis, or edema. NEURO: awake, oriented x 2. Non focal. Results - Labs CBC & Chem 7: 02/20/18 06:06 02/20/18 06:06 Laboratory Results - last 24 hr 02/19/18 02/19/18 02/19/18 12:37 17:16 20:54 WBC RBC Hgb Hct MCV MCH MCHC RDW Plt Count MPV Neut % (Auto) Lymph % (Auto) Cameron % (Auto) Eos % (Auto) Baso % (Auto) Neut # (Auto) Lymph # (Auto) [place] # (Auto) Eos # (Auto) Baso # (Auto) WBC Differential Differential Comment Sodium Potassium Chloride Carbon Dioxide Anion Gap BUN Creatinine Estimated GFR POC Glucose 299 H 189 H 219 H Random Glucose Calcium Triglycerides Cholesterol LDL Cholesterol, Calc HDL Cholesterol Cholesterol/HDL Ratio 02/20/18 02/20/18 02/20/18 06:06 06:06 06:06 WBC 7.6 RBC 4.10 L Hgb 12.1 L Hct 34.4 L MCV 84.0 MCH 29.5 MCHC 35.1 RDW 14.1 Plt Count 138 L MPV 9.1 Neut % (Auto) 68.3 Lymph % (Auto) 18.9 Cameron % (Auto) 9.3 H Eos % (Auto) 2.8 Baso % (Auto) 0.7 Neut # (Auto) 5.2 Lymph # (Auto) 1.4 Cameron # (Auto) 0.7 Eos # (Auto) 0.2 Baso # (Auto) 0.1 WBC Differential . Differential Comment Auto diff final Sodium 141 Potassium 4.5 Chloride 104 Carbon Dioxide 29.5 Anion Gap 8 BUN 22 H Creatinine 1.28 Estimated GFR 54 L POC Glucose Random Glucose 212 H Calcium 9.4 Triglycerides 194 H Cholesterol 117 L LDL Cholesterol, Calc 39 HDL Cholesterol 39.2 L Cholesterol/HDL Ratio 2.98 02/20/18 08:26 WBC RBC Hgb Hct MCV MCH MCHC RDW Plt Count MPV Neut % (Auto) Lymph % (Auto) Cameron % (Auto) Eos % (Auto) Baso % (Auto) Neut # (Auto) Lymph # (Auto) [place] # (Auto) Eos # (Auto) Baso # (Auto) WBC Differential Differential Comment Sodium Potassium Chloride Carbon Dioxide Anion Gap BUN Creatinine Estimated GFR POC Glucose 236 H Random Glucose Calcium Triglycerides Cholesterol LDL Cholesterol, Calc HDL Cholesterol Cholesterol/HDL Ratio Assessment and Plan - Assessment (1) Unstable angina Code(s): I20.0 - Unstable angina Status: Acute Plan: -- chest pain free at present time -- 2D echo completed and shows severely reduced left ventricular systolic function with as estimated of 25-30%, global hypokinesis -- cardiology consulted and following, continue medical mgmt -- family to provide MRI of brain for review -- continue daily ASA (2) Hypertension Code(s): I10 - Essential (primary) hypertension Status: Chronic Plan: -- chronic and stable -- continue home medications -- cont to monitor vital signs per unit protocol (3) Hyperlipidemia Code(s): E78.5 - Hyperlipidemia, unspecified Status: Chronic Plan: -- chronic and stable -- resume statin (4) Dementia Code(s): F03.90 - Unspecified dementia without behavioral disturbance Status: Acute Plan: -- stable, no behavioral disturbance -- continue home meds (5) Diabetes 1.5, 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 presented with CP and SOB x 10 days. Unstable Angina -- 2D echo completed and shows severely reduced left ventricular systolic function with as estimated of 25-30%, global hypokinesis -- cardiology consulted and following, continue medical mgmt-ASA, statins, BB, EUGENE, Imidur --D/W findings of brain MRI with Dr. Leonard, he spoke to family. They wish to proceed with cardiac cath. --Keep NPO for now, going for cardiac cath. Cardiomyopathy Echo shows EF 25-30% --continue with EUGENE, BB, Lasix Hypertension: -- continue home medications -- cont to monitor vital signs per unit protocol Report of Brain mass-diagnosed 2 months ago, scheduled [facility] -- family provided MRI of brain film for review --Images were reviewed by [facility] in house Radiologist and findings most consistent with chronic changes including white matter disease and atrophy. No tumor or mass was identified. --D/W findings with family, questions answered in detail. Hyperlipidemia -- continue statin Renal insufficiency --creat improving --Hydrate cautiously, going for cardiac cath. DM II --accuchecks AC/HS with ISS labs in am Code Status: Full code Discussed Condition With: RN, pt, and family, CM D/W Dr. Leonard Discharge Planning: DC when cleared by cardiology, going for cath today (2) Hypertension Qualifiers: Hypertension type: essential hypertension Qualified Code(s): I10 - Essential (primary) hypertension (3) Hyperlipidemia Qualifiers: Hyperlipidemia type: unspecified Qualified Code(s): E78.5 - Hyperlipidemia, unspecified (4) Dementia Qualifiers: Dementia type: unspecified type Dementia behavioral disturbance: without behavioral disturbance Qualified Code(s): F03.90 - Unspecified dementia without behavioral disturbance (6) Cardiomyopathy Qualifiers: Cardiomyopathy type: ischemic Qualified Code(s): I25.5 - Ischemic cardiomyopathy
--- NOTE | 2018-02-20 08:46 | P.PNCA ---
Subjective Interval history: Denies CP, dyspnea, palpitations, dizziness. Medications and Allergies Active Medications: Active Medications Hydrocodone Bitart/Acetaminophen ([place] 10/325) 1 tab PO Q6H PRN PRN Reason: Pain 1-10 Last Admin: 02/19/18 17:27 Dose: 1 tab Amitriptyline HCl (Elavil) 10 mg PO HS [facility] Last Admin: 02/19/18 21:16 Dose: 10 mg Amlodipine Besylate (Norvasc) 5 mg PO DAILY [facility] Last Admin: 02/19/18 08:07 Dose: 5 mg Artificial Tears (Refresh Tears 0.5% Opth Drops) 1 drop EACH EYE QID [facility] Last Admin: 02/19/18 21:18 Dose: 1 drop Aspirin (Aspirin) 325 mg PO DAILY [facility] Last Admin: 02/19/18 08:06 Dose: 325 mg Atorvastatin Calcium (Lipitor) 40 mg PO HS [facility] Last Admin: 02/19/18 21:17 Dose: 40 mg Carvedilol (Coreg) 3.125 mg PO BID [facility] Last Admin: 02/19/18 21:15 Dose: 3.125 mg Cyanocobalamin (Vitamin B12) 1,000 mcg PO DAILY [facility] Last Admin: 02/19/18 08:07 Dose: 1,000 mcg Dextrose (D50w Vial) 50 ml IV.PUSH UNSCH PRN PRN Reason: PER HYPOGLYCEMIA PROTOCOL Furosemide (Lasix) 20 mg PO DAILY [facility] Last Admin: 02/19/18 08:05 Dose: 20 mg Gabapentin (Neurontin) 400 mg PO TID [facility] Last Admin: 02/19/18 17:19 Dose: 400 mg Glucagon (Glucagon Inj) 1 mg OTHER PRN PRN PRN Reason: for Hypoglycemia Protocol Heparin Sodium (Porcine) (Heparin Inj) 5,000 units SQ Q12H [facility] Last Admin: 02/19/18 21:14 Dose: 5,000 units Insulin Aspart (Novolog Insulin Correctional Sugar Inj) 0 unit SQ [facility]; Protocol Last Admin: 02/19/18 21:11 Dose: 3 unit Isosorbide Mononitrate (Imdur) 120 mg PO DAILY@0700 [facility] Last Admin: 02/20/18 06:21 Dose: 120 mg Lisinopril (Prinivil) 40 mg PO DAILY [facility] Last Admin: 02/19/18 08:17 Dose: 40 mg Methocarbamol (Robaxin) 750 mg PO QID PRN PRN Reason: Muscle Spasm Last Admin: 02/19/18 08:10 Dose: 750 mg Niacin (Slo-Niacin) 500 mg PO DAILY [facility] Last Admin: 02/19/18 08:07 Dose: 500 mg Nitroglycerin (Nitrostat Sl) 0.4 mg SL Q5M PRN PRN Reason: ANGINA Last Admin: 02/18/18 20:45 Dose: 0.4 mg Pantoprazole Sodium (Protonix) 20 mg PO BIDAC [facility] Last Admin: 02/19/18 17:19 Dose: 20 mg Sodium Chloride (Ns Flush) 2 ml IV.FLUSH UNSCH PRN PRN Reason: FLUSH AFTER USING IV ACCESS Sodium Chloride (Ns Flush) 2 ml IV.FLUSH BID [facility] Last Admin: 02/19/18 21:17 Dose: 2 ml Sodium Chloride (Ns Flush) 2 ml IV.FLUSH PRN PRN PRN Reason: FLUSH AFTER USING IV ACCESS Vitamin D (Vitamin D3) 1,000 unit PO DAILY [facility] Last Admin: 02/19/18 08:07 Dose: 1,000 unit Allergies Allergy/AdvReac Type Severity Reaction Status Date / Time oxycodone Allergy Mild Nausea/Vomi Verified 02/18/18 08:18 ting Home Medications Medication Instructions Recorded Confirmed Type amitriptyline 10 mg PO HS 02/18/18 02/18/18 History amlodipine 2.5 mg PO DAILY 02/18/18 02/18/18 History aspirin 325 mg PO DAILY 02/18/18 02/18/18 History carboxymethylcell-hypromellose 1 drp EACH EYE QID 02/18/18 02/18/18 History cholecalciferol (vitamin D3) 1,000 unit PO DAILY 02/18/18 02/18/18 History [Vitamin D3] cyanocobalamin (vitamin B-12) 1,000 mcg PO DAILY 02/18/18 02/18/18 History [Vitamin B-12] furosemide [Lasix] 20 mg PO DAILY 02/18/18 02/18/18 History gabapentin 400 mg PO TID PRN 02/18/18 02/18/18 History glipizide 20 mg PO BIDAC 02/18/18 02/18/18 History hydrocodone-acetaminophen [[place]] 1 tab PO Q6H PRN 02/18/18 02/18/18 History lisinopril 40 mg PO DAILY 02/18/18 02/18/18 History metformin 500 mg PO BID 02/18/18 02/18/18 History methocarbamol 750 mg PO QID PRN 02/18/18 02/18/18 History niacin 500 mg PO DAILY 02/18/18 02/18/18 History omeprazole 20 mg PO BIDAC 02/18/18 02/18/18 History potassium chloride 10 meq PO DAILY 02/18/18 02/18/18 History rosuvastatin 20 mg PO HS 02/18/18 02/18/18 History Physical Exam Vital signs: Vital Signs 02/19/18 09:10 02/19/18 11:45 02/19/18 12:00 Temperature 98.1 F Pulse Rate 62 Respiratory Rate 15 16 Blood Pressure 112/65 Pulse Oximetry 97 98 02/19/18 15:13 02/19/18 17:27 02/19/18 20:00 Temperature 98.4 F 98.0 F Pulse Rate 60 60 Respiratory Rate 12 15 17 Blood Pressure 109/58 L 102/59 L Pulse Oximetry 95 93 L 02/19/18 23:59 02/20/18 03:35 02/20/18 07:11 Temperature 98.4 F 98.2 F 98.4 F Pulse Rate 61 53 L 61 Respiratory Rate 14 14 16 Blood Pressure 94/51 L 107/55 L 106/53 L Pulse Oximetry 94 L 95 96 Intake & Output 02/19/18 02/20/18 02/20/18 18:59 06:59 18:59 Output Total 150 / 150 Balance -150 / -150 Output: Urine 150 / 150 - Constitutional no acute distress - Routine Neck Exam Absent: JVD - Routine Respiratory Exam Present: CTA bilaterally - Routine Cardiovascular Exam Present: RRR, S1, S2. Absent: murmur, gallop - Routine Abdominal Exam Present: soft, normoactive bowel sounds. Absent: tenderness, organomegaly - Routine Extremities Exam Absent: cyanosis, clubbing, edema Results 02/20/18 06:06 02/20/18 06:06 Cardiac Enzymes 02/18/18 02/18/18 02/18/18 Range/Units 08:02 08:02 14:16 Troponin I 0.10 H 0.22 H (0.02-0.05) ng/mL B-Natriuretic Peptide 437 H (0-100) pg/mL 02/18/18 Range/Units 20:33 Troponin I 0.19 H (0.02-0.05) ng/mL B-Natriuretic Peptide (0-100) pg/mL Coagulation 02/18/18 Range/Units 08:02 B-Natriuretic Peptide 437 H (0-100) pg/mL Lipids 02/20/18 Range/Units 06:06 Triglycerides 194 H (42-150) mg/dL Cholesterol 117 L (120-200) mg/dL HDL Cholesterol 39.2 L (40.0-60.0) mg/dL Cholesterol/HDL Ratio 2.98 Ratio CBC 02/18/18 02/20/18 Range/Units 08:02 06:06 WBC 7.0 7.6 (4.0-11.0) th/mm3 RBC 4.19 L 4.10 L (4.50-5.90) mil/mm3 Hgb 12.3 L 12.1 L (13.0-17.0) gm/dL Hct 35.5 L 34.4 L (39.0-51.0) % Plt Count 138 L 138 L (150-450) th/mm3 Neut # (Auto) 4.4 5.2 (1.8-7.7) th/mm3 Lymph # (Auto) 1.6 1.4 (1.0-4.8) th/mm3 Sandoval # (Auto) 0.6 0.7 (0.0-0.9) th/mm3 Eos # (Auto) 0.3 0.2 (0.0-0.4) th/mm3 Baso # (Auto) 0.1 0.1 (0.0-0.2) th/mm3 Comprehensive Metabolic Panel 02/18/18 02/20/18 Range/Units 08:02 06:06 Sodium 141 (136-145) meq/L Potassium 4.5 (3.5-5.1) meq/L Chloride 104 (98-107) meq/L Carbon Dioxide 29.5 (21.0-32.0) meq/L BUN 22 H (7-18) mg/dL Creatinine 1.28 (0.60-1.30) mg/dL Calcium 9.4 (8.5-10.1) mg/dL ALT 21 (12-78) U/L Alkaline Phosphatase 57 (45-117) U/L Total Protein 6.7 (6.4-8.2) g/dL Assessment and Plan - Assessment (1) Unstable angina Code(s): I20.0 - Unstable angina Status: Acute Plan: Stable overnight. No further CP. EF severely reduced by echo. 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 Recommend cath today. Patient agrees to proceed. (2) Cardiomyopathy Code(s): I42.9 - Cardiomyopathy, unspecified Status: Acute Plan: EF 25-30% by echo. Overall compensated. No acute CHF. Possibly ischemic in etiology. For cath today. Continue EUGENE-I, beta elvi. (3) Hypertension Code(s): I10 - Essential (primary) hypertension Status: Chronic Plan: Stable. Normotensive. (4) Hyperlipidemia Code(s): E78.5 - Hyperlipidemia, unspecified Status: Chronic Plan: Continue statin. Acceptable lipid profile. (3) Hypertension Qualifiers: Hypertension type: essential hypertension Qualified Code(s): I10 - Essential (primary) hypertension (4) Hyperlipidemia Qualifiers: Hyperlipidemia type: unspecified Qualified Code(s): E78.5 - Hyperlipidemia, unspecified
[2018-02-20] MEDS: Pantoprazole Sodium 20 MG DR Tablet PO SCH ×2 (11:19→17:16)
[2018-02-20] MEDS: Aspirin 325 MG Tablet PO SCH ×2 (11:20→13:04)
[2018-02-20] MEDS: Gabapentin 400 MG Capsule PO SCH ×2 (11:21→21:23)
[2018-02-20] MEDS: Furosemide 20 MG Tablet PO SCH (11:21)
[2018-02-20] MEDS: amLODIPine 5 MG Tablet PO SCH (11:22)
[2018-02-20] MEDS: Lisinopril 20 MG Tablet PO SCH (11:23)
[2018-02-20] MEDS: Heparin - SQ 10,000 UNITS/ML Vial SQ SCH (12:15)
[2018-02-20] MEDS: Carboxymethylcellulose 0.5% Opth Drops 15 ML Bottle EACH EYE SCH (12:53)
[2018-02-20] MEDS ORDERED: Heparin/NS PF Inj 1,000 ML ONE (13:26)
[2018-02-20] MEDS ORDERED: Heparin 10,000 UNITS/10 ML Vial (for IV use) ONE (13:30)
[2018-02-20] MEDS ORDERED: Lidocaine PF 1% Inj 30 ML Vial ONE (13:46)
--- NOTE | 2018-02-20 14:19 | CATHPROC ---
[employer] HIS Report Study Information Study Number Admission Scheduled Start Study Start [id number] Feb 18 2018 9:24AM 02/20/2018 Feb 20 2018 1:21PM [place] Service Cath Endovascular Study Admit Source Facility Department Emergency department [facility] - Visual Basic Programmer Physician and Clinical Staff Initial Naresh Howard Secondary Art Teacher Kevin Russell,RN Recorder Mirtha Briscoe,BENDER HELPER TECH2 Scrub Ablerto, Vanessa,RT(R) Procedures Performed Procedure Location (Site) Vessel Name Coronary Angiograms LCA Left Coronary Coronary Angiograms RCA Right Coronary L Heart Cath LV Gram-hand inj. LV LV Ventricle Equipment Time Jd Edwards Consultant Description Size Mfg Part Number Used/Scraped TRANSDUCER, TRUWAVE [id number] 13:22 BAUMANN YUNG * Used W/STOCKCOCK *[id number] *[id number] *[id number] 13:22 MALLINCKRODT SYRINGE, ANGIOMAT 150ML 150ML *[id number] Used [facility] MEDICAL CONCEPT DRAPE, RADIAL FEMORAL FULL 13:22 * [id number] *[id number] Used DEVELOPMENT BODY [id number] 13:22 [employer]Klass BLANKET,WARM AIR CCL * Used *[id number] 13:22 [employer] PACK, CCL CUSTOM * Used *[id number] 13:22 [employer] SUPPORT, ARTERIAL ADULT [id number] *[id number] Used [id number] 13:22 [employer] PACER PEN, SKIN DUAL W/ RULER * Used *[id number] BAND, RADIAL COMPRESSION TR [id number] 14:09 Project Repat 24CM Used SHORT 24 *[id number] SHEATH, FR6 RADIAL PRELUDE 13:22 Project Repat FR 6 [id number] Used EASE 11CM [id number] 13:22 Project [employer]at WIRE, EXCHANGE 260CM 3MMJ 260CM Used *[id number] 13:22 NAMIC MANIFOLD, 4 PORT * Used *[id number] 13:22 NYCOMED OMNIPAQUE, 350 MG, 150ML 150ML [id number] Used CATHETER, FR5 OPTITORQUE [id number] 13:48 TER[employer]erBright MEDICAL FR 5 Used RADIAL TIG 4.0 *[id number] History: Current Medications Medication Dosage/Unit Route Frequency Last Date/Time Taken ASA LIPITOR Beta Duncan NORVASC Imdur History: Allergies Allergy Reaction oxycodone Nausea/Vomiting History: Risk Factors Family History of Hypertension Dyslipidemia Previous [place] Previous Heart Failure Premature CAD Yes Yes No No No Prior Valve Prior PCI Prior CABG Surgery No No No Cerebrovascular Peripheral Artery Chronic Lung On Dialysis Diabetes Diabetes Therapy Disease Disease Disease No No No No Yes Oral History: Stress Tests Stress or Imaging Studies Performed No History: Other Current Smoker Method Quit No Cigarettes 50 Years Ago Labs Hgb (g/dl) Hct (%) WBC (l/cumm) Platelets (thousands) 11.60-17.00 35.00-51.00 4.00-11.00 150.00-450.00 12.1 34.4 7.6 138 Glucose (mg/dl) BUN (mg/dl) Creatinine (mg/dl) BUN:Creatinine (1:x) 74.00-106.00 7.00-18.00 0.50-1.30 10.00-20.00 212 22 1.3 16.9 Na (meq/l) K (meq/l) 136.00-145.00 3.50-5.10 141 4.5 INR (PTT:PT) 0.90-1.10 1 Troponin I (ng/ml) CPK (u/l) CPK-MB (ng/ML) 0.02-0.05 26.00-308.00 0.50-3.60 0.19 51 Not Drawn Medication Medication Total Dose (Bolus/Oral) Medication Total Dosage/Unit 1% XYLOCAINE 5 mL VERSED 2 mg Medications (Bolus/Oral) Medication Time Given Dosage/Unit Administered By Reason 1% XYLOCAINE 02/20/2018 1:56:54 PM 5 mL Naresh Leonard 5 mL 1% XYLOCAINE given in lab by Naresh Leonard in Right Radial via Subcutaneous. Ordered by Harpreet Leonard enn. VERSED 02/20/2018 1:57:42 PM 2 mg Kevin Russell 2 mg VERSED given in lab by Kevin Russell RN in Left Antecubital via Peripheral IV. Ordered by Naresh Leonard. Medication (Drip) Medication Time Given Dosage/Unit Concentration/Unit Diluent (ml) Solution IV Bolus 02/20/2018 2:06:07 PM 500 mL (Bolus) 500 NaCl .9 500 mL (Bolus) IV Bolus given in lab by Kevin Russell RN in Left Antecubital via Peripheral IV. Using NaCl .9. Ordered by Naresh Leonard. IV Solutions 02/20/2018 1:20:53 PM 50 mL (IV) NaCl .9 Patient arrived on IV Solutions via Peripheral IV. Pump/Drip Flow using NaCl .9. Initial Case Assessment Cardiovascular HR NIBP 66 111/70 Edema Present Skin color Skin None Normal Warm Dry Circulatory - Right Pulses Dorsalis Pedis Femoral Radial 2 2 2 Scale (0,1,2,3,4,d) Circulatory - Left Pulses Dorsalis Pedis Femoral Radial 2 2 Scale (0,1,2,3,4,d) Neurological State Oriented to time-place- Alert Moves all extremities person Respiration - General Respiration Rate SpO2 (%) (B/min) 12 95 Final Case Assessment Cardiovascular HR NIBP 73 117/70 Edema Present Skin color Skin None Normal Warm Dry Circulatory - Right Pulses Dorsalis Pedis Femoral Radial 2 2 2 Scale (0,1,2,3,4,d) Circulatory - Left Pulses Dorsalis Pedis Femoral Radial 2 2 Scale (0,1,2,3,4,d) Neurological State Oriented to time-place- Alert Moves all extremities person Respiration - General Respiration Rate SpO2 (%) (B/min) 15 93 Chronological Log Time Study Chronological Log 13:20:38 Patient arrived via Bed. 13:20:38 Patient Name, D.O.B, / Armband Verified By R.N. 13:20:40 Consent signed by the physician and the patient and verified by the Visual Basic Programmer staff. 13:20:40 Pre-op and post- op instructions given; patient acknowledges understanding of instructions. 13:20:41 Verbal Stimulation=2 Physical Stimulation=2 Airway=2 Respiration=2 TOTAL=8. (0=absent, 1=li mited, 2=present) 13:20:43 Allens test performed on the right radial and ulnar artery. 13:20:46 Patient has been NPO for More than 6Hrs. 13:20:48 Skin Breakdown- none per patient 13:20:50 Patient Warmer Placed on the Table. 13:20:51 Caldreon Prominences Protected 13:20:52 A # 20 IV was noted in the Antecubital (left). Grade = 0 13:20:53 Patient arrived on IV Solutions via Peripheral IV. Pump/Drip Flow using NaCl .9. 13:20:54 History and physical on the chart or being dictated. Vitals capture started with the following parameters, Patient=Adult, Interval=5 min, Initial Pr umczjz=301 mmHg, 13:40:03 Deflation Rate=5 mmHg, Cuff placed on Left Arm 13:40:40 HR=66 bpm, JGMR=978/70 mmhg, SpO2=95 %, Resp=12 B/min, Pain=0, Srinivasan=10, Kendall=2 Assessment: Initial Case, HR=66 BPM, OVDN=368/70 mmhg, Edema=None, Color=Normal, Skin = Warm, D ry Right Pulses: Homar Ped=2, Femoral=2, Radial=2 13:41:54 Left Pulses: Homar Ped=2, Femoral=2 Neurological: State=Alert, Ox3, CHRISTOPHER Respiration: Resp=12 B/min, SpO2=95 % 13:43:54 Reference ECG taken 13:45:27 Pressure channel 1 zeroed. 13:45:33 HR=64 bpm, UYMF=876/66 mmhg, SpO2=95 %, Resp=14 B/min, Pain=0, Srinivasan=10, Kendall=2 13:50:38 HR=62 bpm, FBSW=632/61 mmhg, SpO2=95.0 %, Resp=16 B/min, Pain=0, Srinivasan=10, Kendall=2 13:55:37 HR=61 bpm, NIBP=99/57 mmhg, SpO2=95 %, Resp=20 B/min, Pain=0, Srinivasan=10, Kendall=2 Time Out. Correct patient, correct procedure, correct physician, labs, allergies, and equipment verified with laundry laborer 13:56:10 team present. Fire risk assesment completed (see hard stop sheet for coding). Time Out Conc urred by MD and individual staff in procedure. 13:56:51 Case Start 13:56:54 5 mL 1% XYLOCAINE given in lab by Naresh Leonard in Right Radial via Subcutaneous. Ordered by Naresh Leonard. 13:57:22 Access site was Right Radial Artery . 13:57:42 2 mg VERSED given in lab by Kevin Russell, RN in Left Antecubital via Peripheral IV. Ordered by Naresh Leonard. A SHEATH, FR6 RADIAL PRELUDE EASE 11CM FR 6 was advanced into the Radial (right) using the Sone s cutdown 13:58:24 technique. A CATHETER, FR5 OPTITORQUE RADIAL TIG 4.0 FR 5 was advanced over a wire. OMNIPAQUE, 350 MG, 150 ML 150ML 13:58:28 was used for injections. Recorded Pressure: Ao, HR=75, Condition=Condition 1 13:59:37 (Aorta) Ao 93/53/69 14:00:36 HR=73 bpm, HDEC=056/60 mmhg, SpO2=96.0 %, Resp=17 B/min, Pain=0, Srinivasan=10, Kendall=2 14:01:14 The RCA was injected and visualized at various angles. OMNIPAQUE, 350 MG, 150ML 150ML used . After removing the current catheter a JL 3.5 INFINITI CATHETER FR 6 was advanced over a WIRE, E XCHANGE 260CM 14:02:49 3MMJ 260CM. 14:04:14 The LCA was injected and visualized at various angles. OMNIPAQUE, 350 MG, 150ML 150ML used . 14:05:43 HR=42 bpm, NIBP=89/44 mmhg, SpO2=96 %, Resp=13 B/min, Pain=0, Srinivasan=10, Kendall=2 500 mL (Bolus) IV Bolus given in lab by Kevin Russell, RN in Left Antecubital via Peripheral IV. Using NaCl .9. Ordered 14:06:07 by Naresh Leonard. After removing the current catheter a MPA-2 INFINITI CATHETER FR 6 was advanced over a WIRE, EX CHANGE 260CM 14:06:31 3MMJ 260CM. Recorded Pressure: LV, HR=71, Condition=Condition 1 14:07:59 (Left Ventricle) LV 108/7/21 14:08:09 The LV was manually injected with 10 cc's and visualized. OMNIPAQUE, 350 MG, 150ML 150ML us ed. Recorded Pressure: LV, Ao, HR=73, Condition=Condition 1 14:08:17 (Left Ventricle) LV 115/1/28, (Aorta) Ao 117/61/82 14:08:34 Catheter was removed 14:08:36 Case End (Physician broke scrub) 14:08:43 Catheter(s) removed without difficulty 14:09:05 BAND, RADIAL COMPRESSION TR SHORT 24 24CM placement in the Radial (right) 14:09:14 No case complications noted. 14:09:15 Cine recording checked. 14:11:09 HR=73 bpm, HUNO=763/70 mmhg, SpO2=93 %, Resp=15 B/min, Pain=0, Srinivasan=10, Kendall=2 14:12:08 Bedside Report will be given. 14:12:11 A Left Heart Cath was performed. 14:13:27 Vitals capture stopped. Assessment: Final Case, HR=73 BPM, JSDY=319/70 mmhg, Edema=None, Color=Normal, Skin = Warm, Dr y Right Pulses: Homar Ped=2, Femoral=2, Radial=2 14:13:36 Left Pulses: Homar Ped=2, Femoral=2 Neurological: State=Alert, Ox3, CHRISTOPHER Respiration: Resp=15 B/min, SpO2=93 % 14:15:19 Patient moved to stretcher End Study - Contrast Media Used In Study Contrast Total Opened (mL) Total Used (mL) Total Wasted (mL) Omnipaque 70 70 0 End Study - Maximum Contrast Load Max Contrast Load (mL) 287.8 End Study - Radiation Exposure Fluoro Time (minutes) 5.0 End Study - Patient Disposition Complications Transferred To Telemetry Bed
--- NOTE | 2018-02-20 14:31 | P.PNADD ---
Addendum to Inpatient Note Reason for Addendum: Additional Documentation Additional information: Cath today shows moderate left main and severe 3 vessel CAD which would be amenable to CABG. Patient likely very high risk candidate however. Spoke to family at length. They would at least like to consult with CV surgery.
--- NOTE | 2018-02-20 15:01 | MA ---
cc: Naresh Leonard MD DATE: 02/20/2018 PROCEDURE: Left heart catheterization, selective coronary angiography, left ventriculography. PROCEDURE NOTES: The patient was brought to the cardiac catheterization laboratory in a fasting state after having signed informed consent. The right radial region was prepped and draped as per policy and anesthetized with 1% lidocaine. Arterial access was obtained via the right radial artery and a 6-Ivorian sheath placed. Coronary arteriography was performed using 6-Ivorian Krystle left JL3.5 to engage the left main and a [place] catheter to engage the right coronary. Left ventriculography was done using a multipurpose catheter. There were no apparent immediate complications. A radial artery compression band was applied to his right wrist at the end of the case to achieve good hemostasis. HEMODYNAMIC DATA: Left ventricle 115 with an end diastolic pressure of 28, aorta 117/61 with a mean of 82. CORONARY ARTERIOGRAPHY: The left main is a long vessel with 30% ostial stenosis and then up to 50% distal tapering. The left anterior descending is a relatively small caliber vessel with diffuse proximal disease resulting in up to 90% stenosis. In the mid LAD, there is up to 50% stenosis. The distal LAD has minimal luminal irregularities. The LAD gives rise to a high diagonal, which is medium sized and has diffuse proximal disease resulting in up to 85% stenosis. The left circumflex is a medium-sized vessel giving rise to a medium sized branching obtuse marginal. There is up to 40% proximal left circumflex stenosis. The obtuse marginal has diffuse up to 90% stenosis proximally. There is a ramus intermedius or high obtuse marginal, which has diffuse ostial to proximal disease resulting in up to 85% stenosis. The right coronary artery is a heavily calcified dominant vessel with diffuse disease. There is 99% stenosis proximally, 50% stenosis in its mid portion, and 80% stenosis distally. The posterior descending artery is probably totally occluded at its origin. There are scant LAD to distal right collaterals. LEFT VENTRICULOGRAPHY: Contrast injection of the left ventricle reveals severe global hypokinesis. Ejection fraction is estimated at 25% to 30%. CONCLUSIONS: 1. Moderate left main disease, severe 3-vessel coronary artery disease. 2. Right dominant system. 3. Severely reduced left ventricular systolic function with ejection fraction estimated at 25% 30%. DISCUSSION: The patient could be referred for bypass surgery. Bypass grafts could be placed to the ramus intermedius, obtuse marginal, distal LAD, diagonal, distal right coronary. However, he is a very high risk surgical candidate. Naresh Leonard MD [facility]/elvin , 02:18 PM , 02:28 PM MTDJacquelyn
[2018-02-20] MEDS ORDERED: Gabapentin 400 MG Capsule PO ONE (16:05)
--- NOTE | 2018-02-20 16:43 | P.CON ---
History of Present Illness Service: CT Surgery Consult date: 02/20/18 Requesting Physician: Naresh Leonard Reason for Consult: Chest pain and mutlivessel CAD Primary Care Provider: [facility] Chief Complaint: Chest pain. History of Present Illness: 82-year-old white male with a history of dementia, diabetes, hypertension, brain mass, who was brought to the hospital due to complaints of chest pain. The patient states for the past 2 weeks, he has had daily episodes of left parasternal chest discomfort described as a "ache" without associated shortness of breath, nausea or diaphoresis. In the last 2-3 weeks, he has also noted increasing dyspnea on exertion, barely able to walk 50 yards without considerable shortness of breath. He denies paroxysmal nocturnal dyspnea, pedal edema, lightheadedness, syncope, near syncope, palpitations. His last episode of chest discomfort was this morning. Some of the episodes have lasted up to 2 hours. FAMILY HISTORY: Noncontributory. SOCIAL HISTORY: The patient quit smoking in the . He denies alcohol abuse. 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 zoroastrian - Family History Family History: Family History (Last Reviewed 02/19/18 @ 06:43 by Rasheeda Garcia) Sister Alzheimer's dementia Mother Alzheimer's dementia - Tobacco History Second Hand Smoke Exposure: No Tobacco Use In Past 30 Days: No Smoking Status: Former smoker - Alcohol History How Often Do You Have a Drink Containing Alcohol: Never - Substance Use History Substance History: No History of Abuse - Travel History Recent Travel in the [place] Within the Last 8 Weeks: No Recent Travel Out of the Country Within the Last 8 Weeks: No - Immunization History Tetanus Immunization: >5 Years Medications and Allergies Active Medications: Active Medications Hydrocodone Bitart/Acetaminophen ([place] 10/325) 1 tab PO Q6H PRN PRN Reason: Pain 1-10 Last Admin: 02/19/18 17:27 Dose: 1 tab Amitriptyline HCl (Elavil) 10 mg PO HS [facility] Last Admin: 02/19/18 21:16 Dose: 10 mg Amlodipine Besylate (Norvasc) 5 mg PO DAILY [facility] Last Admin: 02/20/18 11:22 Dose: Not Given Artificial Tears (Refresh Tears 0.5% Opth Drops) 1 drop EACH EYE QID [facility] Last Admin: 02/20/18 12:53 Dose: 1 drop Aspirin (Aspirin) 325 mg PO DAILY [facility] Last Admin: 02/20/18 13:04 Dose: 325 mg Atorvastatin Calcium (Lipitor) 40 mg PO HS [facility] Last Admin: 02/19/18 21:17 Dose: 40 mg Carvedilol (Coreg) 3.125 mg PO BID [facility] Last Admin: 02/20/18 11:20 Dose: Not Given Cyanocobalamin (Vitamin B12) 1,000 mcg PO DAILY [facility] Last Admin: 02/20/18 11:24 Dose: Not Given Dextrose (D50w Vial) 50 ml IV.PUSH UNSCH PRN PRN Reason: PER HYPOGLYCEMIA PROTOCOL Furosemide (Lasix) 20 mg PO DAILY [facility] Last Admin: 02/20/18 11:21 Dose: Not Given Gabapentin (Neurontin) 400 mg PO Q12H [facility] Glucagon (Glucagon Inj) 1 mg OTHER PRN PRN PRN Reason: for Hypoglycemia Protocol Sodium Chloride (Ns Inj) 1,000 mls @ 100 mls/hr IV.CONT .Q10H [facility] Insulin Aspart (Novolog Insulin Correctional Sugar Inj) 0 unit SQ ACHS [facility]; Protocol Last Admin: 02/20/18 12:54 Dose: Not Given Isosorbide Mononitrate (Imdur) 120 mg PO DAILY@0700 [facility] Last Admin: 02/20/18 06:21 Dose: 120 mg Lisinopril (Prinivil) 40 mg PO DAILY [facility] Last Admin: 02/20/18 11:23 Dose: Not Given Methocarbamol (Robaxin) 750 mg PO QID PRN PRN Reason: Muscle Spasm Last Admin: 02/19/18 08:10 Dose: 750 mg Niacin (Slo-Niacin) 500 mg PO DAILY [facility] Last Admin: 02/20/18 11:24 Dose: Not Given Nitroglycerin (Nitrostat Sl) 0.4 mg SL Q5M PRN PRN Reason: ANGINA Last Admin: 02/18/18 20:45 Dose: 0.4 mg Pantoprazole Sodium (Protonix) 20 mg PO BIDAC [facility] Last Admin: 02/20/18 11:19 Dose: Not Given Sodium Chloride (Ns Flush) 2 ml IV.FLUSH BID [facility] Last Admin: 02/20/18 12:15 Dose: 2 ml Sodium Chloride (Ns Flush) 2 ml IV.FLUSH PRN PRN PRN Reason: FLUSH AFTER USING IV ACCESS Vitamin D (Vitamin D3) 1,000 unit PO DAILY [facility] Last Admin: 02/20/18 12:14 Dose: Not Given Allergies Allergy/AdvReac Type Severity Reaction Status Date / Time oxycodone Allergy Mild Nausea/Vomi Verified 02/18/18 08:18 ting Home Medications Medication Instructions Recorded Confirmed Type amitriptyline 10 mg PO HS 02/18/18 02/18/18 History amlodipine 2.5 mg PO DAILY 02/18/18 02/18/18 History aspirin 325 mg PO DAILY 02/18/18 02/18/18 History carboxymethylcell-hypromellose 1 drp EACH EYE QID 02/18/18 02/18/18 History cholecalciferol (vitamin D3) 1,000 unit PO DAILY 02/18/18 02/18/18 History [Vitamin D3] cyanocobalamin (vitamin B-12) 1,000 mcg PO DAILY 02/18/18 02/18/18 History [Vitamin B-12] furosemide [Lasix] 20 mg PO DAILY 02/18/18 02/18/18 History gabapentin 400 mg PO TID PRN 02/18/18 02/18/18 History glipizide 20 mg PO BIDAC 02/18/18 02/18/18 History hydrocodone-acetaminophen [[place]] 1 tab PO Q6H PRN 02/18/18 02/18/18 History lisinopril 40 mg PO DAILY 02/18/18 02/18/18 History metformin 500 mg PO BID 02/18/18 02/18/18 History methocarbamol 750 mg PO QID PRN 02/18/18 02/18/18 History niacin 500 mg PO DAILY 02/18/18 02/18/18 History omeprazole 20 mg PO BIDAC 02/18/18 02/18/18 History potassium chloride 10 meq PO DAILY 02/18/18 02/18/18 History rosuvastatin 20 mg PO HS 02/18/18 02/18/18 History Physical Exam Vital signs: Vital Signs 02/19/18 17:27 02/19/18 20:00 02/19/18 23:59 Temperature 98.0 F 98.4 F Pulse Rate 60 61 Respiratory Rate 15 17 14 Blood Pressure 102/59 L 94/51 L Pulse Oximetry 93 L 94 L 02/20/18 03:35 02/20/18 07:11 02/20/18 12:00 Temperature 98.2 F 98.4 F 98.5 F Pulse Rate 53 L 61 72 Respiratory Rate 14 16 16 Blood Pressure 107/55 L 106/53 L 114/60 Pulse Oximetry 95 96 96 02/20/18 14:26 Temperature Pulse Rate Respiratory Rate Blood Pressure Pulse Oximetry 93 L Intake & Output 02/19/18 02/20/18 02/20/18 18:59 06:59 18:59 Intake Total 10 / 10 Output Total 150 / 150 Balance -150 / -150 10 / 10 Intake: IV 10 / 10 Heparin/NS PF Inj 1,000 ML @ 0 10 / 10 mls/hr .ROUTE .[facility] Rx#: [id number] Output: Urine 150 / 150 - Constitutional no acute distress, agitated - Routine HEENT Exam Head: Present: normocephalic, atraumatic Eye: Present: EOMI, PERRL ENT: Present: mucous membranes moist - Routine Neck Exam Present: supple, full ROM - Routine Respiratory Exam Present: CTA bilaterally - Routine Cardiovascular Exam Present: RRR, S1, S2. Absent: murmur - Routine Abdominal Exam Present: soft, normoactive bowel sounds - Routine Extremities Exam Present: pulses intact - Routine Skin Exam Present: intact - Routine Neurological Exam Present: alert Oriented to person only - Routine Psychiatric Exam Present: agitated Results - Labs CBC & Chem 7: 02/20/18 06:06 02/20/18 06:06 Labs: Laboratory Results - last 24 hr 02/19/18 02/19/18 02/20/18 17:16 20:54 06:06 WBC RBC Hgb Hct MCV MCH MCHC RDW Plt Count MPV Neut % (Auto) Lymph % (Auto) [place] % (Auto) Eos % (Auto) Baso % (Auto) Neut # (Auto) Lymph # (Auto) [place] # (Auto) Eos # (Auto) Baso # (Auto) WBC Differential Differential Comment Sodium Potassium Chloride Carbon Dioxide Anion Gap BUN Creatinine Estimated GFR POC Glucose 189 H 219 H Random Glucose Calcium Triglycerides 194 H Cholesterol 117 L LDL Cholesterol, Calc 39 HDL Cholesterol 39.2 L Cholesterol/HDL Ratio 2.98 02/20/18 02/20/18 02/20/18 06:06 06:06 08:26 WBC 7.6 RBC 4.10 L Hgb 12.1 L Hct 34.4 L MCV 84.0 MCH 29.5 MCHC 35.1 RDW 14.1 Plt Count 138 L MPV 9.1 Neut % (Auto) 68.3 Lymph % (Auto) 18.9 [place] % (Auto) 9.3 H Eos % (Auto) 2.8 Baso % (Auto) 0.7 Neut # (Auto) 5.2 Lymph # (Auto) 1.4 [place] # (Auto) 0.7 Eos # (Auto) 0.2 Baso # (Auto) 0.1 WBC Differential . Differential Comment Auto diff final Sodium 141 Potassium 4.5 Chloride 104 Carbon Dioxide 29.5 Anion Gap 8 BUN 22 H Creatinine 1.28 Estimated GFR 54 L POC Glucose 236 H Random Glucose 212 H Calcium 9.4 Triglycerides Cholesterol LDL Cholesterol, Calc HDL Cholesterol Cholesterol/HDL Ratio 02/20/18 12:47 WBC RBC Hgb Hct MCV MCH MCHC RDW Plt Count MPV Neut % (Auto) Lymph % (Auto) [place] % (Auto) Eos % (Auto) Baso % (Auto) Neut # (Auto) Lymph # (Auto) [place] # (Auto) Eos # (Auto) Baso # (Auto) WBC Differential Differential Comment Sodium Potassium Chloride Carbon Dioxide Anion Gap BUN Creatinine Estimated GFR POC Glucose 237 H Random Glucose Calcium Triglycerides Cholesterol LDL Cholesterol, Calc HDL Cholesterol Cholesterol/HDL Ratio - Imaging Chest X-Ray 02/18/18 07:58 CONCLUSION: No acute cardiopulmonary findings. - ABG Attestation: I personally reviewed and interpreted this ABG as follows: Assessment and Plan - Assessment (1) CAD (coronary artery disease) Code(s): I25.10 - Atherosclerotic heart disease of [place] coronary artery without angina pectoris Status: Acute (2) Cardiomyopathy Code(s): I42.9 - Cardiomyopathy, unspecified Status: Acute (3) Dementia Code(s): F03.90 - Unspecified dementia without behavioral disturbance Status: Acute (4) Chest pain Code(s): R07.9 - Chest pain, unspecified Status: Acute (5) Unstable angina Code(s): I20.0 - Unstable angina Status: Acute - Plan 82y/o male presents with unstable angina and multivessel CAD. He also has significant dementia. I had a long ~30 minute discussion with his and family and do NOT recommend CABG. His STS Risk is also very high. This patient would not likely be able to return home indefinitely following CABG and would also be unable to participate in his care. He has severe dementia and requires total care from his and family. I discussed this with Dr. Leonard and his family has agreed to no plan for CABG. STS Adult Cardiac Surgery Database Version 2.9 RISK SCORES Procedure: Isolated CAB CALCULATE Risk of Mortality: 11.855% Renal Failure: 8.674% Permanent Stroke: 2.902% Prolonged Ventilation: 26.285% DSW Infection: 0.269% Reoperation: 4.518% Morbidity or Mortality: 35.205% Short Length of Stay: 9.514% Long Length of Stay: 23.832% (1) CAD (coronary artery disease) Qualifiers: Coronary Disease-Associated Artery/Lesion type: [place] artery [place] vs. transplanted heart: [place] heart Associated angina: with unstable angina Qualified Code(s): I25.110 - Atherosclerotic heart disease of [place] coronary artery with unstable angina pectoris (2) Cardiomyopathy Qualifiers: Cardiomyopathy type: ischemic Qualified Code(s): I25.5 - Ischemic cardiomyopathy (3) Dementia Qualifiers: Dementia type: Alzheimer's disease Alzheimer's disease onset: unspecified onset Dementia behavioral disturbance: without behavioral disturbance Qualified Code(s): G30.9 - Alzheimer's disease, unspecified; F02.80 - Dementia in other diseases classified elsewhere without behavioral disturbance (4) Chest pain Qualifiers: Ischemic chest pain type: unstable angina pectoris
[2018-02-20] MEDS: Amitriptyline 10 MG Tablet PO SCH (21:23)
[2018-02-21 04:37] LABS: Hematocrit 31.1 % (39.0-51.0); Hemoglobin 11.1 gm/dL (13.0-17.0); Mean Corpuscular HGB Conc 35.7 % (32.0-36.0); Mean Corpuscular Hemoglobin 29.6 pg (27.0-34.0); Mean Corpuscular Volume 82.7 fL (80.0-100.0); Mean Platelet Volume 8.6 fL (7.0-11.0); Platelet Count 133 th/mm3 (150-450); Red Blood Count 3.75 mil/mm3 (4.50-5.90); Red Cell Distribution Width 14.1 % (11.6-17.2); White Blood Count 6.8 th/mm3 (4.0-11.0)
[2018-02-21 05:03] LABS: Calcium 8.8 mg/dL (8.5-10.1); Carbon Dioxide 25.2 meq/L (21.0-32.0); Potassium 3.9 meq/L (3.5-5.1)
[2018-02-21] MEDS: Isosorbide Mononitrate 60 MG ER 24HR Tablet (Imdur) PO SCH (06:06)
--- NOTE | 2018-02-21 08:28 | P.PNCA ---
Subjective Interval history: Denies CP, dyspnea, dizziness, palpitations. Slept poorly. Medications and Allergies Active Medications: Active Medications Hydrocodone Bitart/Acetaminophen ([place] 10/325) 1 tab PO Q6H PRN PRN Reason: Pain 1-10 Last Admin: 02/20/18 17:19 Dose: 1 tab Amitriptyline HCl (Elavil) 10 mg PO HS [facility] Last Admin: 02/20/18 21:23 Dose: 10 mg Amlodipine Besylate (Norvasc) 5 mg PO DAILY [facility] Last Admin: 02/20/18 11:22 Dose: Not Given Artificial Tears (Refresh Tears 0.5% Opth Drops) 1 drop EACH EYE QID [facility] Last Admin: 02/20/18 12:53 Dose: 1 drop Aspirin (Aspirin) 325 mg PO DAILY [facility] Last Admin: 02/20/18 13:04 Dose: 325 mg Atorvastatin Calcium (Lipitor) 40 mg PO HS [facility] Last Admin: 02/20/18 21:22 Dose: 40 mg Carvedilol (Coreg) 3.125 mg PO BID [facility] Last Admin: 02/20/18 21:22 Dose: 3.125 mg Cyanocobalamin (Vitamin B12) 1,000 mcg PO DAILY [facility] Last Admin: 02/20/18 11:24 Dose: Not Given Dextrose (D50w Vial) 50 ml IV.PUSH UNSCH PRN PRN Reason: PER HYPOGLYCEMIA PROTOCOL Furosemide (Lasix) 20 mg PO DAILY [facility] Last Admin: 02/20/18 11:21 Dose: Not Given Gabapentin (Neurontin) 400 mg PO Q12H [facility] Last Admin: 02/20/18 21:23 Dose: 400 mg Glucagon (Glucagon Inj) 1 mg OTHER PRN PRN PRN Reason: for Hypoglycemia Protocol Sodium Chloride (Ns Inj) 1,000 mls @ 100 mls/hr IV.CONT .Q10H [facility] Insulin Aspart (Novolog Insulin Correctional Sugar Inj) 0 unit SQ ACHS [facility]; Protocol Last Admin: 02/20/18 21:24 Dose: 1 unit Isosorbide Mononitrate (Imdur) 120 mg PO DAILY@0700 [facility] Last Admin: 02/21/18 06:06 Dose: 120 mg Lisinopril (Prinivil) 40 mg PO DAILY [facility] Last Admin: 02/20/18 11:23 Dose: Not Given Methocarbamol (Robaxin) 750 mg PO QID PRN PRN Reason: Muscle Spasm Last Admin: 02/19/18 08:10 Dose: 750 mg Niacin (Slo-Niacin) 500 mg PO DAILY [facility] Last Admin: 02/20/18 11:24 Dose: Not Given Nitroglycerin (Nitrostat Sl) 0.4 mg SL Q5M PRN PRN Reason: ANGINA Last Admin: 02/18/18 20:45 Dose: 0.4 mg Pantoprazole Sodium (Protonix) 20 mg PO BIDAC [facility] Last Admin: 02/20/18 17:16 Dose: 20 mg Sodium Chloride (Ns Flush) 2 ml IV.FLUSH BID [facility] Last Admin: 02/20/18 21:00 Dose: 2 ml Sodium Chloride (Ns Flush) 2 ml IV.FLUSH PRN PRN PRN Reason: FLUSH AFTER USING IV ACCESS Vitamin D (Vitamin D3) 1,000 unit PO DAILY [facility] Last Admin: 02/20/18 12:14 Dose: Not Given Allergies Allergy/AdvReac Type Severity Reaction Status Date / Time oxycodone Allergy Mild Nausea/Vomi Verified 02/18/18 08:18 ting Home Medications Medication Instructions Recorded Confirmed Type amitriptyline 10 mg PO HS 02/18/18 02/18/18 History amlodipine 2.5 mg PO DAILY 02/18/18 02/18/18 History aspirin 325 mg PO DAILY 02/18/18 02/18/18 History carboxymethylcell-hypromellose 1 drp EACH EYE QID 02/18/18 02/18/18 History cholecalciferol (vitamin D3) 1,000 unit PO DAILY 02/18/18 02/18/18 History [Vitamin D3] cyanocobalamin (vitamin B-12) 1,000 mcg PO DAILY 02/18/18 02/18/18 History [Vitamin B-12] furosemide [Lasix] 20 mg PO DAILY 02/18/18 02/18/18 History gabapentin 400 mg PO TID PRN 02/18/18 02/18/18 History glipizide 20 mg PO BIDAC 02/18/18 02/18/18 History hydrocodone-acetaminophen [[place]] 1 tab PO Q6H PRN 02/18/18 02/18/18 History lisinopril 40 mg PO DAILY 02/18/18 02/18/18 History metformin 500 mg PO BID 02/18/18 02/18/18 History methocarbamol 750 mg PO QID PRN 02/18/18 02/18/18 History niacin 500 mg PO DAILY 02/18/18 02/18/18 History omeprazole 20 mg PO BIDAC 02/18/18 02/18/18 History potassium chloride 10 meq PO DAILY 02/18/18 02/18/18 History rosuvastatin 20 mg PO HS 02/18/18 02/18/18 History Physical Exam Vital signs: Vital Signs 02/20/18 12:00 02/20/18 14:26 02/20/18 19:05 Temperature 98.5 F 98.4 F Pulse Rate 72 56 L Respiratory Rate 16 16 Blood Pressure 114/60 111/60 Pulse Oximetry 96 93 L 94 L 02/20/18 20:00 02/20/18 23:00 02/21/18 00:00 Temperature 98.4 F 98.3 F Pulse Rate 54 L 55 L 60 Respiratory Rate 16 16 Blood Pressure 111/60 105/61 Pulse Oximetry 94 L 95 02/21/18 02:00 02/21/18 03:00 02/21/18 04:00 Temperature 98.3 F Pulse Rate 55 L 53 L 61 Respiratory Rate 16 Blood Pressure 113/66 Pulse Oximetry 95 02/21/18 05:00 02/21/18 05:48 02/21/18 07:00 Temperature Pulse Rate 71 64 71 Respiratory Rate Blood Pressure Pulse Oximetry Intake & Output 02/20/18 02/21/18 02/21/18 18:59 06:59 18:59 Intake Total Balance Intake: IV Heparin/NS PF Inj 1,000 ML @ 0 10 10 mls/hr .ROUTE .[facility] Rx#: [id number] - Constitutional no acute distress - Routine Neck Exam Absent: JVD - Routine Respiratory Exam Present: CTA bilaterally - Routine Cardiovascular Exam Present: RRR, S1, S2. Absent: murmur, gallop - Routine Abdominal Exam Present: soft, normoactive bowel sounds. Absent: tenderness, organomegaly - Routine Extremities Exam Absent: cyanosis, clubbing, edema Results 02/21/18 04:18 02/21/18 04:18 Lipids 02/20/18 Range/Units 06:06 Triglycerides 194 H (42-150) mg/dL Cholesterol 117 L (120-200) mg/dL HDL Cholesterol 39.2 L (40.0-60.0) mg/dL Cholesterol/HDL Ratio 2.98 Ratio CBC 02/20/18 02/21/18 Range/Units 06:06 04:18 WBC 7.6 6.8 (4.0-11.0) th/mm3 RBC 4.10 L 3.75 L (4.50-5.90) mil/mm3 Hgb 12.1 L 11.1 L (13.0-17.0) gm/dL Hct 34.4 L 31.1 L (39.0-51.0) % Plt Count 138 L 133 L (150-450) th/mm3 Neut # (Auto) 5.2 (1.8-7.7) th/mm3 Lymph # (Auto) 1.4 (1.0-4.8) th/mm3 [place] # (Auto) 0.7 (0.0-0.9) th/mm3 Eos # (Auto) 0.2 (0.0-0.4) th/mm3 Baso # (Auto) 0.1 (0.0-0.2) th/mm3 Comprehensive Metabolic Panel 02/20/18 02/21/18 Range/Units 06:06 04:18 Sodium 141 139 (136-145) meq/L Potassium 4.5 3.9 (3.5-5.1) meq/L Chloride 104 105 (98-107) meq/L Carbon Dioxide 29.5 25.2 (21.0-32.0) meq/L BUN 22 H 14 (7-18) mg/dL Creatinine 1.28 1.23 (0.60-1.30) mg/dL Calcium 9.4 8.8 (8.5-10.1) mg/dL Assessment and Plan - Assessment (1) Unstable angina Code(s): I20.0 - Unstable angina Status: Acute Plan: Stable since admission. No further CP. Cath yesterday shows severe [address] Davison' input noted, appreciated. Patient not good candidate for CABG. Recommend medical therapy, continue current cardiac medications, OK to discharge home today. (2) Cardiomyopathy Code(s): I42.9 - Cardiomyopathy, unspecified Status: Chronic Plan: EF 25-30% by echo and cath. Overall compensated. No acute CHF. Continue EUGENE-I , beta elvi. (3) Hypertension Code(s): I10 - Essential (primary) hypertension Status: Chronic Plan: Stable. Normotensive. (4) Hyperlipidemia Code(s): E78.5 - Hyperlipidemia, unspecified Status: Chronic Plan: Continue statin. Acceptable lipid profile. - Plan Code Status: full code Discussed Condition With: patient today, and at length with family yesterday afternoon (2) Cardiomyopathy Qualifiers: Cardiomyopathy type: ischemic Qualified Code(s): I25.5 - Ischemic cardiomyopathy (3) Hypertension Qualifiers: Hypertension type: essential hypertension Qualified Code(s): I10 - Essential (primary) hypertension (4) Hyperlipidemia Qualifiers: Hyperlipidemia type: unspecified Qualified Code(s): E78.5 - Hyperlipidemia, unspecified
[2018-02-21] MEDS: Carboxymethylcellulose 0.5% Opth Drops 15 ML Bottle EACH EYE SCH ×2 (08:32→12:57)
[2018-02-21] MEDS: Insulin NovoLOG Aspart Correctional Sugar Inj SQ SCH ×3 (08:32→16:26)
[2018-02-21] MEDS: Pantoprazole Sodium 20 MG DR Tablet PO SCH ×2 (08:33→17:19)
[2018-02-21] MEDS: Furosemide 20 MG Tablet PO SCH (08:33)
[2018-02-21] MEDS: Gabapentin 400 MG Capsule PO SCH (08:33)
[2018-02-21] MEDS: amLODIPine 5 MG Tablet PO SCH (08:33)
[2018-02-21] MEDS: Aspirin 325 MG Tablet PO SCH (08:34)
[2018-02-21] MEDS: Lisinopril 20 MG Tablet PO SCH (08:34)
--- NOTE | 2018-02-21 09:29 | P.PN ---
Subjective Interval history: This is a pleasant 82 y/o Male who was admitted with diagnosis of Unstable Angina and Multivessel Coronary Artery Disease, he has Dementia, see by Vascular demo specialist not recommended for CABG at this time due to high risk, he has CAD, Cardiomyopathy, Dementia, timber sizer placement, his Cardiac Cath showed 3 vessel CAD is STS Risk is also very high, EF 25-30%. 02/21: Stable in his bedroom no nausea, vomit or diarrhea, discussed with patient and his and other relatives they want him to go to Hospice, placed consult and awaiting final recommendations, at this time continue as Full Code awaiting to discuss with Hospice. Physical Exam Vital signs: Vital Signs 02/20/18 12:00 02/20/18 14:26 02/20/18 19:05 Temperature 98.5 F 98.4 F Pulse Rate 72 56 L Respiratory Rate 16 16 Blood Pressure 114/60 111/60 Pulse Oximetry 96 93 L 94 L 02/20/18 20:00 02/20/18 23:00 02/21/18 00:00 Temperature 98.4 F 98.3 F Pulse Rate 54 L 55 L 60 Respiratory Rate 16 16 Blood Pressure 111/60 105/61 Pulse Oximetry 94 L 95 02/21/18 02:00 02/21/18 03:00 02/21/18 04:00 Temperature 98.3 F Pulse Rate 55 L 53 L 61 Respiratory Rate 16 Blood Pressure 113/66 Pulse Oximetry 95 02/21/18 05:00 02/21/18 05:48 02/21/18 07:00 Temperature Pulse Rate 71 64 71 Respiratory Rate Blood Pressure Pulse Oximetry Intake & Output 02/20/18 02/21/18 02/21/18 18:59 06:59 18:59 Intake Total Balance Intake: IV Heparin/NS PF Inj 1,000 ML @ 0 10 mls/hr .ROUTE .[facility] Rx#: [id number] Narrative: GENERAL: awake, alert, no distress SKIN: Warm and dry HEAD: Normocephalic, atraumatic EYES: No scleral icterus. No injection or drainage. NECK: Supple, trachea midline. No JVD or lymphadenopathy. CARDIOVASCULAR: Regular rate and rhythm without murmurs, gallops, or rubs. RESPIRATORY: Breath sounds equal bilaterally. No accessory muscle use. GASTROINTESTINAL: Abdomen soft, non-tender, nondistended. MUSCULOSKELETAL: No cyanosis, or edema. NEURO: awake, oriented x 2. Non focal. Results - Labs CBC & Chem 7: 02/21/18 04:18 02/21/18 04:18 Laboratory Results - last 24 hr 02/20/18 02/20/18 02/20/18 12:47 16:50 20:32 WBC RBC Hgb Hct MCV MCH MCHC RDW Plt Count MPV Sodium Potassium Chloride Carbon Dioxide Anion Gap BUN Creatinine Estimated GFR POC Glucose 237 H 274 H 163 H Random Glucose Calcium 02/21/18 02/21/18 04:18 04:18 WBC 6.8 RBC 3.75 L Hgb 11.1 L Hct 31.1 L MCV 82.7 MCH 29.6 MCHC 35.7 RDW 14.1 Plt Count 133 L MPV 8.6 Sodium 139 Potassium 3.9 Chloride 105 Carbon Dioxide 25.2 Anion Gap 9 BUN 14 Creatinine 1.23 Estimated GFR 56 L POC Glucose Random Glucose 223 H Calcium 8.8 - Imaging Chest X-Ray 02/18/18 07:58 CONCLUSION: No acute cardiopulmonary findings. - Procedures Cardiac Catheterization. Assessment and Plan - Assessment (1) Unstable angina Code(s): I20.0 - Unstable angina Status: Acute Plan: -- chest pain free at present time -- 2D echo completed and shows severely reduced left ventricular systolic function with as estimated of 25-30%, global hypokinesis -- cardiology consulted and following, continue medical mgmt -- family to provide MRI of brain for review -- continue daily ASA (2) Hypertension Code(s): I10 - Essential (primary) hypertension Status: Chronic Plan: -- chronic and stable -- continue home medications -- cont to monitor vital signs per unit protocol (3) Hyperlipidemia Code(s): E78.5 - Hyperlipidemia, unspecified Status: Chronic Plan: -- chronic and stable -- resume statin (4) Dementia Code(s): F03.90 - Unspecified dementia without behavioral disturbance Status: Acute Plan: -- stable, no behavioral disturbance -- continue home meds (5) Diabetes 1.5, managed as type 2 Code(s): E10.9 - Type 1 diabetes mellitus without complications Status: Chronic (6) Cardiomyopathy Code(s): I42.9 - Cardiomyopathy, unspecified Status: Chronic - Plan 82 y.o. presented with CP and SOB x 10 days. Unstable Angina -- Unstable Angina and Multivessel Coronary Artery Disease, he has Dementia, see by Vascular demo specialist not recommended for CABG at this time due to high risk, he has CAD, Cardiomyopathy, Dementia, USP placement, his Cardiac Cath showed 3 vessel CAD is STS Risk is also very high, EF 25-30%. Cardiomyopathy Echo shows EF 25-30% --continue with EUGENE, BB, Lasix Hypertension: -- continue home medications -- cont to monitor vital signs per unit protocol Report of Brain mass-diagnosed 2 months ago, [facility] -- family provided MRI of brain film for review --Images were reviewed by [place] in house Radiologist and findings most consistent with chronic changes including white matter disease and atrophy. No tumor or mass was identified. --D/W findings with family, questions answered in detail. Hyperlipidemia -- continue statin Renal insufficiency --creat improving DM II --accuchecks AC/HS with ISS labs in am Code Status: Full code. Discussed Condition With: Patient, Nurse Miss Romero and his Mrs. Hayes and other relatives. Discharge Planning: Once cleared by quarrying specialist or if will go to Hospice as asked by relatives. (2) Hypertension Qualifiers: Hypertension type: essential hypertension Qualified Code(s): I10 - Essential (primary) hypertension (3) Hyperlipidemia Qualifiers: Hyperlipidemia type: unspecified Qualified Code(s): E78.5 - Hyperlipidemia, unspecified (4) Dementia Qualifiers: Dementia type: Alzheimer's disease Alzheimer's disease onset: unspecified onset Dementia behavioral disturbance: without behavioral disturbance Qualified Code(s): G30.9 - Alzheimer's disease, unspecified; F02.80 - Dementia in other diseases classified elsewhere without behavioral disturbance (6) Cardiomyopathy Qualifiers: Cardiomyopathy type: ischemic Qualified Code(s): I25.5 - Ischemic cardiomyopathy
[2018-02-21] MEDS: Methocarbamol 500 MG Tablet PO PRN (12:38)
[2018-02-21 14:11] VITALS: BP 112/52; RESP 20; TEMP 98.2; O2SAT 99
--- NOTE | 2018-02-21 16:59 | P.DS ---
Date of admission: 02/18/18 09:24 Primary care physician: [facility] Attending physician on discharge: Sivakumar Gold Anticipated date of discharge: 02/21/18 Brief History from admission: 82-year-old male with a medical history significant for dementia, hypertension, diabetes, chronic kidney disease sent by the [facility] after his convinced him to seek medical care. The patient has dementia therefore the history was obtained from his at bedside. She reports the patient has been having intermittent chest pain over the past 10 days. Pain is described as pressure with associated diaphoresis and shortness of breath. He has limited functional capacity and cannot walk across the room without getting short of breath and having chest pain. His convinced him to go to the [facility] today and they sent him here for evaluation. The patient was also found to have a brain mass per his 2 months ago. They have a follow-up appointment with neurology at the [facility] in [place] on Saturday. His reports they do not intend to pursue any surgical intervention. Her daughter is a radiologist who will be going to the appointment with them. They do not want further workup here regarding this brain mass. 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 02/21: Stable in his bedroom no nausea, vomit or diarrhea, discussed with patient and his and other relatives they want him to go to Hospice, placed consult and awaiting final recommendations, at this time continue as Full Code awaiting to discuss with Hospice. Assessment and Plan - Assessment (1) Unstable angina Code(s): I20.0 - Unstable angina Status: Acute Plan: -- chest pain free at present time -- 2D echo completed and shows severely reduced left ventricular systolic function with as estimated of 25-30%, global hypokinesis -- cardiology consulted and following, continue medical mgmt -- family to provide MRI of brain for review -- continue daily ASA (2) Hypertension Code(s): I10 - Essential (primary) hypertension Status: Chronic Plan: -- chronic and stable -- continue home medications -- cont to monitor vital signs per unit protocol (3) Hyperlipidemia Code(s): E78.5 - Hyperlipidemia, unspecified Status: Chronic Plan: -- chronic and stable -- resume statin (4) Dementia Code(s): F03.90 - Unspecified dementia without behavioral disturbance Status: Acute Plan: -- stable, no behavioral disturbance -- continue home meds (5) Diabetes 1.5, managed as type 2 Code(s): E10.9 - Type 1 diabetes mellitus without complications Status: Chronic (6) Cardiomyopathy Code(s): I42.9 - Cardiomyopathy, unspecified Status: Chronic - Plan 82 y.o. presented with CP and SOB x 10 days. Unstable Angina -- Unstable Angina and Multivessel Coronary Artery Disease, he has Dementia, see by Vascular loss mitigation specialist not recommended for CABG at this time due to high risk, he has CAD, Cardiomyopathy, Dementia, terminal clerk placement, his Cardiac Cath showed 3 vessel CAD is STS Risk is also very high, EF 25-30%. Cardiomyopathy Echo shows EF 25-30% --continue with EUGENE, BB, Lasix Hypertension: -- continue home medications -- cont to monitor vital signs per unit protocol Report of Brain mass-diagnosed 2 months ago, [facility] -- family provided MRI of brain film for review --Images were reviewed by [place] in house Radiologist and findings most consistent with chronic changes including white matter disease and atrophy. No tumor or mass was identified. --D/W findings with family, questions answered in detail. Hyperlipidemia -- continue statin Renal insufficiency --creat improving DM II --accuchecks AC/HS with ISS labs in am Code Status: Full code. Discussed Condition With: Patient, Nurse Miss Romero and his Mrs. Hayes and other relatives. Discharge Planning: Discharge home with Hospice will be set as outpatient for hospice. - Time Spent with Patient Total time spent providing and/or coordinating discharge services: Less than 30 minutes - Quality: VTE Deep Vein Thrombosis/Pulmonary Embolism Present on Admission: No Exam Vital signs: Vital Signs 02/20/18 19:05 02/20/18 20:00 02/20/18 23:00 Temperature 98.4 F 98.4 F Pulse Rate 56 L 54 L 55 L Respiratory Rate 16 16 Blood Pressure 111/60 111/60 Pulse Oximetry 94 L 94 L 02/21/18 00:00 02/21/18 02:00 02/21/18 03:00 Temperature 98.3 F Pulse Rate 60 55 L 53 L Respiratory Rate 16 Blood Pressure 105/61 Pulse Oximetry 95 02/21/18 04:00 02/21/18 05:00 02/21/18 05:48 Temperature 98.3 F Pulse Rate 61 71 64 Respiratory Rate 16 Blood Pressure 113/66 Pulse Oximetry 95 02/21/18 07:00 02/21/18 08:00 02/21/18 09:00 Temperature 98.2 F Pulse Rate 71 60 66 Respiratory Rate 16 Blood Pressure 112/62 Pulse Oximetry 96 02/21/18 10:00 02/21/18 11:00 02/21/18 11:59 Temperature 98.4 F Pulse Rate 62 66 Respiratory Rate 16 10 L Blood Pressure 108/58 L Pulse Oximetry 95 02/21/18 12:00 02/21/18 13:00 02/21/18 14:00 Temperature Pulse Rate 64 64 71 Respiratory Rate Blood Pressure Pulse Oximetry 02/21/18 14:09 02/21/18 15:00 02/21/18 16:00 Temperature 98.2 F Pulse Rate 60 65 63 Respiratory Rate 20 Blood Pressure 112/52 L Pulse Oximetry 99 Intake & Output 02/20/18 02/21/18 02/21/18 18:59 06:59 18:59 Intake Total Balance Intake: IV Heparin/NS PF Inj 1,000 ML @ 0 10 mls/hr .ROUTE .[facility] Rx#: [id number] Other: Date of Last Bowel Movement 02/19/18 Narrative: GENERAL: awake, alert, no distress SKIN: Warm and dry HEAD: Normocephalic, atraumatic EYES: No scleral icterus. No injection or drainage. NECK: Supple, trachea midline. No JVD or lymphadenopathy. CARDIOVASCULAR: Regular rate and rhythm without murmurs, gallops, or rubs. RESPIRATORY: Breath sounds equal bilaterally. No accessory muscle use. GASTROINTESTINAL: Abdomen soft, non-tender, nondistended. MUSCULOSKELETAL: No cyanosis, or edema. NEURO: awake, oriented x 2. Non focal. Results Procedures completed during hospitalization: Cardiac Catheterization. Labs on day of discharge: Labs from last 24 hours 02/21/18 02/21/18 02/21/18 11:52 04:18 04:18 WBC 6.8 RBC 3.75 L Hgb 11.1 L Hct 31.1 L MCV 82.7 MCH 29.6 MCHC 35.7 RDW 14.1 Plt Count 133 L MPV 8.6 Sodium 139 Potassium 3.9 Chloride 105 Carbon Dioxide 25.2 Anion Gap 9 BUN 14 Creatinine 1.23 Estimated GFR 56 L POC Glucose 319 H Random Glucose 223 H Calcium 8.8 02/20/18 20:32 WBC RBC Hgb Hct MCV MCH MCHC RDW Plt Count MPV Sodium Potassium Chloride Carbon Dioxide Anion Gap BUN Creatinine Estimated GFR POC Glucose 163 H Random Glucose Calcium - Impressions ITS Impressions Chest X-Ray 02/18/18 07:58 CONCLUSION: No acute cardiopulmonary findings. Discharge Plan - Discharge Disposition Patient Disposition: 50 Hospice/Home - Discharge Condition Condition: Stable - Discharge Order Discharge Orders: Discharge Order (Routine); Ordered 02/21/18 Ordered By: Sivakumar Gold Cardiology Clear for Discharge (Routine); Ordered 02/21/18 Ordered By: Naresh Leonard - Discharge Details Anticipated Discharge Date: 02/21/18 Discharge Comment: Follow up with PCP in three days. - Physicians Team Primary Care Provider: [facility],Physician 's Attending Provider: Sivakumar Gold Other Providers: Naresh Leonard MD ; Adri Peng MD
[2018-02-21 17:40] VITALS: PULSE 65
== END 2018-02-21 18:47 | disposition hospice, home (50) ==
LOC: NEDA 07:49 → NEPC 07:49 → NEDA 13:27 → NEPGCP 13:27 → HCIS 02-20 13:40 → HCPC 02-20 19:05 → HCIS 02-21 13:41
PROVIDERS: ADMIT Internal Medicine; ATTEND Internal Medicine
DX: Z79.899 Other long term (current) drug therapy; G30.9 Alzheimer's disease, unspecified; F02.80 Dementia in other diseases classified elsewhere, unspecified severity, without behavioral disturbance, psychotic disturbance, mood disturbance, and anxiety; N18.9 Chronic kidney disease, unspecified; Z79.82 Long term (current) use of aspirin; E78.2 Mixed hyperlipidemia; I70.0 Atherosclerosis of aorta; R32 Unspecified urinary incontinence; Z87.891 Personal history of nicotine dependence; I25.5 Ischemic cardiomyopathy; G93.9 Disorder of brain, unspecified; K21.9 Gastro-esophageal reflux disease without esophagitis; E11.22 Type 2 diabetes mellitus with diabetic chronic kidney disease; M48.00 Spinal stenosis, site unspecified; I25.110 Atherosclerotic heart disease of native coronary artery with unstable angina pectoris; R07.9 Chest pain, unspecified; I12.9 Hypertensive chronic kidney disease with stage 1 through stage 4 chronic kidney disease, or unspecified chronic kidney disease; H54.8 Legal blindness, as defined in USA; Z85.828 Personal history of other malignant neoplasm of skin; I08.1 Rheumatic disorders of both mitral and tricuspid valves